=== PATIENT | male | born 1965 ===

== ENCOUNTER 2025-09-17 20:00 | Inpatient (IN) | payer MEDICARE, OTHER, SELFPAY ==
[2025-09-17 20:05] VITALS: BP 155/68
[2025-09-17 20:08] VITALS: BMI 31.1
[2025-09-17 20:10] VITALS: BP 141/69
[2025-09-17 21:53] LABS: Hematocrit 40.8 % (39.0-52.0); Hemoglobin 13.9 g/dL (13.0-18.0); Mean Corp Hgb Conc. 34.1 g/dL (33.0-37.0); Mean Corpuscular Volume 90.3 fL (80.0-94.0); Nucleated Red Blood Cells % 0 % (-); Platelet Count 194 10^3/uL (130-400); Red Cell Dist. Width 12.7 % (11.5-14.5)
[2025-09-17 22:16] LABS: ALT (SGPT) 24 U/L (0-50); AST (SGOT) 24 U/L (17-59); Albumin 4.1 g/dl (3.5-5.0); Alkaline Phosphatase 64 U/L (38-126); Blood Urea Nitrogen 14 mg/dl (9-20); Calcium 9.2 mg/dl (8.4-10.2); Carbon Dioxide 23 mmol/L (22-30); Chloride 107 mmol/L (98-107); Estimated Creatinine Clearance 84 ml/min; Glucose 116 mg/dl (70-99); Magnesium 1.8 mg/dl (1.6-2.3); Potassium 3.9 mmol/L (3.5-5.1); Sodium 135 mmol/L (135-145); Total Protein 7.3 g/dl (6.3-8.2); eGFR > 60.00
[2025-09-17 22:17] LABS: INR 1.05; PT 14.0 Sec (11.4-14.6)
[2025-09-17 22:18] LABS: APTT 31.6 Sec (23.4-35.0)
[2025-09-17] MEDS: COLACE 100 MG PO (22:33)
[2025-09-17 22:35] VITALS: BP 123/58
[2025-09-17 22:39] LABS: Glucose - Point of Care 191 mg/dl (70-99)
[2025-09-18] VITALS (8 sets, daily range): BP systolic 124–150; BP diastolic 56–79; BMI 31.1
--- NOTE | 2025-09-18 00:36 | PTCARENOTE ---
Rec'd pt as transfer from [facility]. Pt AAO*3, VSS, and SR on tele monitor. Pt denies any pain or discomfort and oriented to room. Pt now resting with call del castillo in reach. See MAR and flowchart for full pt care and assessment. Pt [place]
speaking with hospital job order clerk in room.
[2025-09-18 04:57] LABS: Hematocrit 39.7 % (39.0-52.0); Hemoglobin 13.8 g/dL (13.0-18.0); Mean Corp Hgb Conc. 34.8 g/dL (33.0-37.0); Mean Corpuscular Volume 88.4 fL (80.0-94.0); Platelet Count 196 10^3/uL (130-400); Red Cell Dist. Width 12.7 % (11.5-14.5)
[2025-09-18 05:26] LABS: Blood Urea Nitrogen 13 mg/dl (9-20); Calcium 9.1 mg/dl (8.4-10.2); Carbon Dioxide 24 mmol/L (22-30); Chloride 110 mmol/L (98-107); Estimated Creatinine Clearance 84 ml/min; Glucose 96 mg/dl (70-99); HDL Cholesterol 24 mg/dl; LDL Cholesterol, Calculated 153 mg/dl; Magnesium 1.9 mg/dl (1.6-2.3); Potassium 4.3 mmol/L (3.5-5.1); Sodium 138 mmol/L (135-145); Very Low Density Lipoprotein 40 mg/dl (0-30); eGFR > 60.00
[2025-09-18 08:06] LABS: Glucose - Point of Care 106 mg/dl (70-99)
--- NOTE | 2025-09-18 08:32 | HPS.HSE ---
Addendum entered and electronically signed by Giorgio Cox MD 09/18/25 09:55:
I saw and examined the patient.
The PA's note was reviewed and I agree with the note.
Comment:
DARREN 2254: PREOP
60M s/ TVD on elective cath, known PVD w/ LE claudication
LAST PLAVIX was 09/17, LAST FARXIGA was 09/17
-��������� Check carotid U/S
-��������� Check palmar arch studies (known PVD, current smoker)
-��������� Consult vascular surgery for claudication/known 90% B/L SFA disease, etc.
-��������� Check CT-C w/o contrast - DONE
-��������� Check FULL PFTs
-��������� Check echocardiogram
-��������� OR timing TBD
Original Note:
Family Physician
-
Family Physician: NO INTERVIEW UNKNOWN
Chief Complaint
-
Transfer for CABG evaluation due to triple-vessel disease found on left heart catheterization
History of Present Illness
Immanuel Mayorga is a 60-year-old Belgian speaking [id number] male followed by Dr. Leslie and transferred to [facility] for CABG evaluation after finding triple-vessel coronary disease left heart cath. Patient initially presented to [facility] on 09/17/2025 for elective heart catheterization due to high risk for coronary disease due to uncontrolled type 2 diabetes, continued tobacco abuse, and complaint of lower extremity claudication. Patient underwent a gated Myoview stress
test in January 2025 which was negative for scar or ischemia and reported an EF of 73%. Left heart cath performed by Dr. Mcleod reported triple-vessel coronary disease. Patient currently denies chest discomfort, shortness of breath, lower extremity
edema. Last dose of Plavix was 09/17/2025. Last dose of Farxiga was 09/17/2025.
Pertinent negatives: Denies CVA/TIA, asthma, dysphagia, reflux, hepatitis, kidney stones, kidney disease, cancer, PE/DVT, prior chest surgery/radiation
Medical History
Past Medical History
Past Medical History: Reports COPD (Current tobacco (40+ pack year history)), HTN, Hypercholesterolemia, NIDDM (x 20 years) and Other (PAD with B/L SFA 90% stenosis, B/L anterior tibial occlusion, BPH)
Past Surgical History: Reports None
Social History
Tobacco: Smoker (Current 40+ pack-year history)
Alcohol: Occasional
Drug: None
Employment: Not Employed
Family History
Family History: Not pertinent
Allergies / Home Medications
Allergies reflects when Allergies were last updated in [facility].
Allergies
Allergy/AdvReac Type Severity Reaction Status Date / Time
No Known Allergies Allergy Unverified 09/17/25 15:37
Home Medications
�Medication �Instructions �Recorded
aspirin 81 mg QDAY 09/18/25
carvedilol 25 mg tablet 25 mg PO BID 09/18/25
chlorhexidine gluconate 0.12 % 15 ml QDAY 09/18/25
mouthwash
cilostazol 100 mg tablet 100 mg PO BID 09/18/25
dapagliflozin propanediol 5 mg 5 mg PO DAILY 09/18/25
tablet (Farxiga)
diclofenac sodium 1 % topical gel 4 g topical QID PRN other 09/18/25
fenofibrate 150 mg capsule 150 mg PO DAILY 09/18/25
gabapentin 300 mg capsule 300 mg QDAY 09/18/25
icosapent ethyl 1 gram capsule 2 g PO BID 09/18/25
(Vascepa)
levofloxacin 500 mg tablet 500 mg PO DAILY 09/18/25
metformin 1,000 mg tablet 1,000 mg BID 09/18/25
mupirocin 2 % topical ointment 1 applic topical BID 09/18/25
tadalafil 20 mg tablet 20 mg PO DAILY PRN other 09/18/25
Home Medications with original date entered in [facility]
Allergy/Medication List:
Home Medications
�Medication �Instructions �Recorded
aspirin 81 mg QDAY 09/18/25
carvedilol 25 mg tablet 25 mg PO BID 09/18/25
chlorhexidine gluconate 0.12 % 15 ml QDAY 09/18/25
mouthwash
cilostazol 100 mg tablet 100 mg PO BID 09/18/25
dapagliflozin propanediol 5 mg 5 mg PO DAILY 09/18/25
tablet (Farxiga)
diclofenac sodium 1 % topical gel 4 g topical QID PRN other 09/18/25
fenofibrate 150 mg capsule 150 mg PO DAILY 09/18/25
gabapentin 300 mg capsule 300 mg QDAY 09/18/25
icosapent ethyl 1 gram capsule 2 g PO BID 09/18/25
(Vascepa)
levofloxacin 500 mg tablet 500 mg PO DAILY 09/18/25
metformin 1,000 mg tablet 1,000 mg BID 09/18/25
mupirocin 2 % topical ointment 1 applic topical BID 09/18/25
tadalafil 20 mg tablet 20 mg PO DAILY PRN other 09/18/25
Review of Systems
-
History Source: Patient and Family (son as dietary clerk)
Constitutional: Reports No Symptoms
EENT: Reports No Symptoms
Respiratory: Reports No Symptoms
Cardiac: Reports No Symptoms
Abdomen/GI: Reports No Symptoms
: Reports No Symptoms
Musculoskeletal: Reports Other (LE claudication )
Skin: Reports No Symptoms
Neurological: Reports No Symptoms
Endocrine: Reports See HPI
Hematologic/Lymphatic: Reports No Symptoms
Psych: Reports No Symptoms
Physical Exam
Vital Signs
Vital Signs
Temp Pulse Resp BP Pulse Ox
99.1 F 73 18 150/69 96
09/18/25 07:54 09/18/25 08:00 09/18/25 07:54 09/18/25 07:56 09/18/25 07:56
Physical Exam
General: Well Developed, Well Nourished and No Apparent Distress
HEENT: NormoCephalic, Anicteric, Moist mucous membranes, PERRLA, [place] Conjunctivae, No Ptosis, Nose Appears Normal, Ears Appear Normal and Neck Nontender
Respiratory: Clear
Cardiac: S1/S2 and Regular Rhythm
Breast: N/A
GI: Soft, Non Tender, Non Distended, Normal Bowel Sounds and No Hepatosplenomegaly
Rectal: Deferred by Provider
Genito-urinary: Deferred by me
Musculoskeletal: No Clubbing, No Cyanosis and No Edema
Skin: Warm and Dry
Neuro: AO x 3, No Motor Deficits, Nonfocal/grossly intact and No Sensory Deficits
Hematologic/Lymphatic: No Lymphadenopathy
Psych: Calm
Laboratory Results
-
09/18/25 04:40
09/18/25 04:40
Laboratory Results
PT 14.0 Sec (11.4-14.6) 09/17/25 21:40
INR 1.05 09/17/25 21:40
APTT 31.6 Sec (23.4-35.0) 09/17/25 21:40
Total Bilirubin 0.5 mg/dl (0.2-1.3) 09/17/25 21:40
AST 24 U/L (17-59) 09/17/25 21:40
ALT 24 U/L (0-50) 09/17/25 21:40
Alkaline Phosphatase 64 U/L (38-126) 09/17/25 21:40
Data Reviewed
-
Diagnostic Radiology: Report Reviewed by me and Discussed with Physician
Medical Tests (Nuc Med, Echo, EKG etc): Report Reviewed by me and Discussed with Physician
Lab Data: Labs Reviewed by me and Discussed with Physician
Old Records: Reviewed (from [facility])
Impression/Plan
-
IMPRESSION: 60-year-old male transferred from [facility] to [facility] for CABG evaluation due to finding of triple-vessel disease on elective left heart cath
PLAN:
Last dose of Farxiga 09/17/2025
Last dose of Plavix 09/17/2025-requires washout period of 5 days prior to surgery
Metformin on hold x 48 hours status post left heart catheterization on 09/17/2025
Surgeon to review imaging and discuss risk/benefit with patient and family
Preop diagnostic testing ordered including radial artery ultrasound to evaluate conduit
Patient has concern about receiving heparin due to pork based nature of medicine
Diabetes nurse practitioner will need to follow for aggressive management of diabetes
Need for immediate lifelong backup cessation
[2025-09-18 09:39] LABS: Glycohemoglobin (HgbA1c) 5.9 % (4.0-5.9)
[2025-09-18] MEDS: LEXAPRO 10 MG PO (09:40)
[2025-09-18] MEDS: TRICOR 145 MG PO (09:40)
[2025-09-18] MEDS: SENOKOT 8.6 MG PO ×2 (09:40→21:01)
[2025-09-18] MEDS: ACTOS 30 MG PO (09:40)
[2025-09-18] MEDS: ZETIA 10 MG PO (09:41)
[2025-09-18] MEDS: COREG 3.125 MG PO ×2 (09:41→21:01)
[2025-09-18] MEDS: ASPIR LOW (ENTERIC COATED) 81 MG PO (09:41)
[2025-09-18] MEDS: PROTONIX 40 MG PO (09:41)
[2025-09-18 13:51] LABS: Glucose - Point of Care 90 mg/dl (70-99)
[2025-09-18] MEDS: NICODERM TRANSDERMAL 21 MG TRANSDERM (14:15)
--- NOTE | 2025-09-18 17:16 | PTCARENOTE ---
Pt ambulating in room and halls, denies pain, denies SOB. Nicoderm patch given as ordered.
[2025-09-18 17:54] LABS: Glucose - Point of Care 92 mg/dl (70-99)
[2025-09-18] MEDS: LIPITOR 40 MG PO (17:54)
[2025-09-18 20:42] LABS: Glucose - Point of Care 155 mg/dl (70-99)
[2025-09-18 21:19] LABS: Urine Character Clear (Clear)
[2025-09-18] MEDS: REMOVE NICOTINE PATCH REMOVE (21:25)
[2025-09-18 21:26] LABS: Urine Red Blood Cell 0-2 /HPF (0-2); Urine Squamous Cell 0-2 /LPF (Few); Urine White Cell 0-2 /HPF (0-5)
--- NOTE | 2025-09-18 22:01 | PTCARENOTE ---
Rec'd pt at change of shift. Pt AAO*3, VSS, and SR on tele monitor. Pt denies any pain or discomfort at this time. Pt and family updated on plan of care regarding plavix w/o, CV surgery, and vascular consult. Pt now resting with call del castillo in
reach. Son at bedside. Plan of care ongoing. See MAR and flowchart for full pt care and assessment.
[2025-09-19] VITALS (7 sets, daily range): BP systolic 132–167; BP diastolic 72–85; BMI 31.0
--- NOTE | 2025-09-19 03:30 | W.PN.CT ---
Today's Communication / Plan
-
Plan:
-No issues overnight. No CP/SOB
-Not on heparin or NTG
-Cont. current meds (ASA, Coreg, Zetia, Lipitor, Tricor, Actos, Metformin)
-Holding ADRIANO-I, ARBs, SGLT2 inhibitors in preparation for CABG
-Plavix washout, last dose 09/17/25
-For CABG following Plavix washout
Assessment / Plan
-
Assessment:
-Severe 3v CAD
-Plavix washout, last dose 09/17/25
-HTN
-HLD
-T2DM x 20 yrs (A1C 5.9) x
-Class 1 obesity (BMI 31)
-COPD
-Current tobacco abuse (40 pk/yr)
-PAD with B/L SFA 90% stenosis, B/L anterior tibial occlusion
-Past Medical History: Reports COPD (Current tobacco (40+ pack year history)), HTN, Hypercholesterolemia, NIDDM (x 20 years) and Other (PAD with , BPH)
Discussed patient care with: Cardiology, Nursing, Respiratory Therapy, Pharmacy and Care Team
Subjective
-
Date of Service: September 19, 2025
Pt c/o LE claudication, denies CP/SOB
Objective Data
-
Lab Results
09/18/25 04:40
PT 14.0 Sec (11.4-14.6) 09/17/25 21:40
INR 1.05 09/17/25 21:40
APTT 31.6 Sec (23.4-35.0) 09/17/25 21:40
Vital Signs
Vital Signs
Temp Pulse Resp BP Pulse Ox
97.9 F 81 16 132/56 98
09/18/25 22:23 09/18/25 22:23 09/18/25 22:23 09/18/25 22:23 09/18/25 22:23
CT Intake/Output/Weight
09/18/25 09/18/25 09/19/25
06:59 18:59 06:59
Intake Total 480 / 480 480 / 480
Output Total 400 / 400
Balance 480 / 480 -400 / 80 480 / 80
SaO2: 98 (RA)
Physical Exam
-
General: Awake, Oriented and AOx3
Cardiovascular: Regular rate & rhythm, No Murmurs, No Rub and No Gallop
Respiratory: Clear
Extremities: Other (+LE pulses by doppler )
Data Reviewed
-
Lab Results: Results Reviewed
Medications: Active Meds Reviewed
Chest X-Ray: Report Reviewed and Image Reviewed
ECG: Report Reviewed and Image Reviewed
[2025-09-19 05:11] LABS: Blood Urea Nitrogen 15 mg/dl (9-20); Calcium 9.2 mg/dl (8.4-10.2); Carbon Dioxide 22 mmol/L (22-30); Chloride 112 mmol/L (98-107); Estimated Creatinine Clearance 84 ml/min; Glucose 119 mg/dl (70-99); Magnesium 2.0 mg/dl (1.6-2.3); Potassium 4.4 mmol/L (3.5-5.1); Sodium 139 mmol/L (135-145); eGFR > 60.00
[2025-09-19 08:51] LABS: Glucose - Point of Care 135 mg/dl (70-99)
[2025-09-19] MEDS: NICODERM TRANSDERMAL 21 MG TRANSDERM (09:25)
[2025-09-19] MEDS: COREG 3.125 MG PO ×2 (09:27→19:30)
[2025-09-19] MEDS: ACTOS 30 MG PO (09:27)
[2025-09-19] MEDS: ZETIA 10 MG PO (09:28)
[2025-09-19] MEDS: GLUCOPHAGE 1000 MG PO ×2 (09:28→17:38)
[2025-09-19] MEDS: ASPIR LOW (ENTERIC COATED) 81 MG PO (09:28)
[2025-09-19] MEDS: PROTONIX 40 MG PO (09:28)
[2025-09-19] MEDS: SENOKOT 8.6 MG PO ×2 (09:29→19:31)
[2025-09-19] MEDS: LEXAPRO 10 MG PO (09:29)
[2025-09-19] MEDS: TRICOR 145 MG PO (09:29)
--- NOTE | 2025-09-19 12:08 | CON.CAR ---
Consultation
Consultation Request
Date/Time Consultation Requested: 09/18/2025
Date/Time Consultation Performed: 09/19/2025
Reason for Consultation: Coronary disease
Medical History
-
Chief Complaint: Coronary artery disease
History of Present Illness:
68-year-old gentleman, Burkinan-speaking, with patient's son present in the room during most of the translation, patient Dr. Leslie from [facility], is transferred to [facility] for coronary bypass grafting.
Patient presented to the [facility] with severe lower extremity swelling and claudication symptoms. Patient underwent workup for elective cardiac catheterization on 09/17/2025 prior to PVD intervention. Patient was noted to have
uncontrolled diabetes, continued tobacco abuse and severe peripheral vascular disease - Peripheral artery disease with bilateral SFA 90% stenosis. Bilateral anterior tibial artery occlusion.
Patient had myocardial perfusion stress test back in January 2025 that was negative for any inducible ischemia and LVEF was 73%. Cardiac catheterization done on 09/17/[address] Mcleod at [facility] showed severe triple-vessel disease.
Patient is on Farxiga and Plavix. Patient's last dose of Plavix and Farxiga was on 09/17/2025. Patient is admitted and Plavix washout is planned with plan of cardiac bypass surgery later this week.
Past Medical History
Past Medical History: CAD, COPD, Hypercholesterolemia, NIDDM and Other (Peripheral artery disease with bilateral SFA 90% stenosis. Bilateral anterior tibial artery occlusion, continued tobacco abuse with 40+ pack-year smoking history)
Social History
Tobacco: Smoker
Alcohol: Occasional
Family History
Family History: Reviewed & Not Pertinent
Allergies / Home Medications
Allergy/AdvReac Type Severity Reaction Status Date / Time
No Known Allergies Allergy Unverified 09/17/25 15:37
�Medication �Instructions �Recorded �Confirmed �Type
aspirin 81 mg QDAY 09/18/25 09/18/25 History
carvedilol 25 mg tablet 25 mg PO BID 09/18/25 09/18/25 History
chlorhexidine gluconate 0.12 % 15 ml QDAY 09/18/25 09/18/25 History
mouthwash
cilostazol 100 mg tablet 100 mg PO BID 09/18/25 09/18/25 History
dapagliflozin propanediol 5 mg 5 mg PO DAILY 09/18/25 09/18/25 History
tablet (Farxiga)
diclofenac sodium 1 % topical gel 4 g topical QID PRN other 09/18/25 09/18/25 History
fenofibrate 150 mg capsule 150 mg PO DAILY 09/18/25 09/18/25 History
gabapentin 300 mg capsule 300 mg QDAY 09/18/25 09/18/25 History
icosapent ethyl 1 gram capsule 2 g PO BID 09/18/25 09/18/25 History
(Vascepa)
levofloxacin 500 mg tablet 500 mg PO DAILY 09/18/25 09/18/25 History
metformin 1,000 mg tablet 1,000 mg BID 09/18/25 09/18/25 History
mupirocin 2 % topical ointment 1 applic topical BID 09/18/25 09/18/25 History
tadalafil 20 mg tablet 20 mg PO DAILY PRN other 09/18/25 09/18/25 History
Review of Systems
-
All other systems: Negative unless noted
Physical Exam
Vital Signs
Temp Pulse Resp BP Pulse Ox
98 F 74 20 132/73 99
09/19/25 11:09 09/19/25 11:06 09/19/25 11:09 09/19/25 11:06 09/19/25 11:09
Lab Results
09/18/25 04:40
09/19/25 04:19
Keg-G-Ovxwxlzsxre Pept 84.8 pg/ml 09/17/25 21:40
Physical Exam
General: Well Developed, Well Nourished and No Apparent Distress
HEENT: Normocephalic, Anicteric and Moist Mucous Membranes
Respiratory: Clear and Non Labored Respirations; Negative Wheezes or Crackles
Cardiac: S1/S2 and Regular Rhythm
GI: Soft, Non Tender and Non Distended
Musculoskeletal: No Clubbing, No Cyanosis and No Edema
Skin: Warm and Dry
Neuro: Awake, Alert and Oriented
Psych: Calm
Impression / Plan
-
60-year-old Burkinan-speaking gentleman with history of HTN, diabetes, hyperlipidemia, 40+ smoking abuse, severe peripheral artery disease and triple-vessel coronary artery disease is recommended to undergo bypass surgery.
Coronary artery disease
- On aspirin, Coreg, Lipitor, fenofibrate, and Zetia
- Patient was on aspirin/Plavix for PAD. Last dose of Plavix was on 09/17/2025
- Last echo 12/14/2024: LVEF 60%. No significant valvular heart disease.
- Cardiac catheterization 09/17/2025: Triple-vessel disease. I personally do not have left heart cath angiography films.
- CT surgery to review the angiography and plan for bypass.
- At this time we will continue patient on aspirin, carvedilol and statins.
- Plavix washout and plan for bypass on Saturday or .
Smoking
- Smoking cessation.
- Nicotine patch
Diabetes
- currently on Actos, Farxiga and metformin
- Sliding scale insulin for better diabetes/glucose control perioperatively.
- A1c is 5.9.
Hyperlipidemia
- Poorly controlled hyperlipidemia with total cholesterol 217 and LDL 153.
- Currently on Lipitor, fenofibrate and Zetia
- If he is compliant with the current regimen, he may be a candidate for PCSK9 inhibitors.
Data Reviewed
-
EKG: Tracing Personally Visualized and interpreted and Report Reviewed by me
Radiology: Report Reviewed by me
Labs: Labs Reviewed by me, Discussed with Physician, Discussed with Patient and Discussed with Family
Old Records: Reviewed
[2025-09-19 12:13] LABS: Glucose - Point of Care 100 mg/dl (70-99)
[2025-09-19 16:52] LABS: Glucose - Point of Care 201 mg/dl (70-99)
[2025-09-19] MEDS: LIPITOR 40 MG PO (17:38)
--- NOTE | 2025-09-19 18:04 | W.PN.CT ---
Today's Communication / Plan
-
- await CUS, B/L LE US, palmar arch US, TTE on 09/20
- Full department PFTs ordered for 09/21
Assessment / Plan
-
Assessment:
-Severe 3v CAD
-Plavix washout, last dose 09/17/25
-HTN
-HLD
-T2DM x 20 yrs (A1C 5.9) x
-Class 1 obesity (BMI 31)
-COPD
-Current tobacco abuse (40 pk/yr)
-PAD with B/L SFA 90% stenosis, B/L anterior tibial occlusion
-Past Medical History: Reports COPD (Current tobacco (40+ pack year history)), HTN, Hypercholesterolemia, NIDDM (x 20 years) and Other (PAD with , BPH)
Discussed patient care with: Cardiology, Nursing and Care Team
Subjective
-
Date of Service: September 19, 2025
Objective Data
-
Lab Results
09/18/25 04:40
09/19/25 04:19
PT 14.0 Sec (11.4-14.6) 09/17/25 21:40
INR 1.05 09/17/25 21:40
APTT 31.6 Sec (23.4-35.0) 09/17/25 21:40
Vital Signs
Vital Signs
Temp Pulse Resp BP Pulse Ox
98.5 F 78 20 155/74 97
09/19/25 16:03 09/19/25 16:01 09/19/25 16:03 09/19/25 16:01 09/19/25 16:03
CT Intake/Output/Weight
09/18/25 09/19/25 09/19/25
18:59 06:59 18:59
Intake Total 480 / 480
Output Total 400 / 400
Balance -400 / 80 480 / 80
SaO2: 97
Physical Exam
-
General: AOx3
Cardiovascular: Regular rate & rhythm
Respiratory: Clear
Extremities: No Edema
Data Reviewed
-
Lab Results: Results Reviewed
Chest X-Ray: Report Reviewed and Image Reviewed
ECG: Report Reviewed and Image Reviewed
--- NOTE | 2025-09-19 18:28 | PTCARENOTE ---
Pt ambulated in halls, carlitos well. Accucheck this evening 201, Pt refused insulin, he did take his PO Metformin as ordered.
[2025-09-19] MEDS: FLUSH (NSS) 1 FLUSH IV (19:30)
--- NOTE | 2025-09-19 21:55 | PTCARENOTE ---
Rec'd pt at change of shift. Pt AAO*3, VSS, and Sr on tele monitor. Pt denies any pain or discomfort and new zealander speaking with hospital coat tailor at bedside. Pt now resting with call del castillo in reach. See MAR and flowchart for full pt care and
assessment.
[2025-09-19 22:46] LABS: Glucose - Point of Care 107 mg/dl (70-99)
[2025-09-20] VITALS (7 sets, daily range): BP systolic 131–159; BP diastolic 61–87; BMI 31.1
--- NOTE | 2025-09-20 04:14 | W.PN.CT ---
Today's Communication / Plan
-
Plan:
-No issues overnight. No CP/SOB
-Not on heparin or NTG
-Cont. current meds (ASA, Coreg, Zetia, Lipitor, Tricor, Actos, Metformin)
-Holding ADRIANO-I, ARBs, SGLT2 inhibitors in preparation for CABG
-Plavix washout, last dose 09/17/25
-Ongoing preop workup (CUS, B/L LE US, palmar arch US, TTE on 09/20, full department PFTs ordered for 09/21)
-For CABG following Plavix washout possibly Saturday 09/22, by Dr. Cox
Assessment / Plan
-
Assessment:
-Severe 3v CAD
-Plavix washout, last dose 09/17/25
-HTN
-HLD
-T2DM x 20 yrs (A1C 5.9)
-Class 1 obesity (BMI 31)
-COPD
-Current tobacco abuse (40 pk/yr)
-PAD with B/L SFA 90% stenosis, B/L anterior tibial occlusion
Discussed patient care with: Cardiology, Nursing, Respiratory Therapy, Pharmacy and Care Team
Subjective
-
Date of Service: September 20, 2025
Pt c/o LE claudication, denies CP/SOB
Objective Data
-
Lab Results
09/19/25 04:19
PT 14.0 Sec (11.4-14.6) 09/17/25 21:40
INR 1.05 09/17/25 21:40
APTT 31.6 Sec (23.4-35.0) 09/17/25 21:40
Vital Signs
Vital Signs
Temp Pulse Resp BP Pulse Ox
98 F 69 16 153/72 98
09/19/25 22:22 09/19/25 23:00 09/19/25 22:22 09/19/25 22:22 09/19/25 22:22
CT Intake/Output/Weight
09/19/25 09/19/25 09/20/25
06:59 18:59 06:59
Intake Total 480 / 480 480 / 480
Balance 480 / 80 480 / 480
SaO2: 98 (RA)
Physical Exam
-
General: Awake, Oriented and AOx3
Cardiovascular: Regular rate & rhythm and No Murmurs
Respiratory: Clear
Extremities: Other (Dopplerable LE pulses)
Data Reviewed
-
Lab Results: Results Reviewed
Medications: Active Meds Reviewed
Chest X-Ray: Report Reviewed and Image Reviewed
ECG: Report Reviewed and Image Reviewed
[2025-09-20 05:14] LABS: Hematocrit 41.4 % (39.0-52.0); Hemoglobin 14.5 g/dL (13.0-18.0); Mean Corp Hgb Conc. 35.0 g/dL (33.0-37.0); Mean Corpuscular Volume 89.8 fL (80.0-94.0); Platelet Count 192 10^3/uL (130-400); Red Cell Dist. Width 12.3 % (11.5-14.5)
--- NOTE | 2025-09-20 08:20 | CON.VAS ---
Consultation
Consultation Request
Date/Time Consultation Performed: 09/20/2025 1300
Requesting Provider: Cardiothoracic surgery
Performing Provider: Rima Spencer NP-C for Anson Black M.D.
Reason for Consultation: Peripheral arterial disease, preoperative evaluation
Medical History
-
Chief Complaint: Transfer for CABG following elective cardiac catheterization
History of Present Illness:
This is a 60-year-old male patient who was transferred to [facility] for CABG following elective heart catheterization done at [facility] on 09/17/2025, which found high risk coronary artery disease requiring urgent triple-vessel CABG. He
is now undergoing preoperative evaluations and Plavix washout for tentatively scheduled CABG with cardiothoracic surgery. He is Samoan speaking only and this consult was done utilizing video hourly sign language interpreter via [employer] hourly sign language interpreter Erika #[id number]
per hospital policy. Unfortunately, transfer paperwork only has results of cardiac catheterization, there is a reference to BL angiogram in results of cardiac cath but they were not included in transfer paperwork. There also is mention of a possible
CT angio but again no results are present om transfer paperwork. We inquired to patient if he underwent a CT angio at [facility] and he cannot recall. Patient indicates that he was experiencing claudication style pain in BL calves with
ambulation, but today he overall feels good and has been pain free (even with ambulation of room and halls). He is an active tobacco smoker (40+ pack year), history of hypertension/hypercholesterolemia/diabetes as well. No prior lower extremity
revascularizations. He does endorse seeing a vascular surgeon out of [facility] but no surgical intervention was done. States, overall he has no complaints at this time.
Past Medical History
Past Medical History: CAD, COPD, Hypercholesterolemia, NIDDM and Other (Tobacco abuse (40+ pack-year history), peripheral arterial disease)
Past Surgical History: Cardiac (Cardiac catheterization)
Social History
Tobacco: Smoker
Alcohol: Occasional
Drug: None
Allergies / Home Medications
Allergy/AdvReac Type Severity Reaction Status Date / Time
No Known Allergies Allergy Unverified 09/17/25 15:37
�Medication �Instructions �Recorded �Confirmed �Type
aspirin 81 mg QDAY 09/18/25 09/18/25 History
carvedilol 25 mg tablet 25 mg PO BID 09/18/25 09/18/25 History
chlorhexidine gluconate 0.12 % 15 ml QDAY 09/18/25 09/18/25 History
mouthwash
cilostazol 100 mg tablet 100 mg PO BID 09/18/25 09/18/25 History
dapagliflozin propanediol 5 mg 5 mg PO DAILY 09/18/25 09/18/25 History
tablet (Farxiga)
diclofenac sodium 1 % topical gel 4 g topical QID PRN other 09/18/25 09/18/25 History
fenofibrate 150 mg capsule 150 mg PO DAILY 09/18/25 09/18/25 History
gabapentin 300 mg capsule 300 mg QDAY 09/18/25 09/18/25 History
icosapent ethyl 1 gram capsule 2 g PO BID 09/18/25 09/18/25 History
(Vascepa)
levofloxacin 500 mg tablet 500 mg PO DAILY 09/18/25 09/18/25 History
metformin 1,000 mg tablet 1,000 mg BID 09/18/25 09/18/25 History
mupirocin 2 % topical ointment 1 applic topical BID 09/18/25 09/18/25 History
tadalafil 20 mg tablet 20 mg PO DAILY PRN other 09/18/25 09/18/25 History
Review of Systems
-
History Source: Patient
Constitutional: Reports No Symptoms
EENT: Reports No Symptoms
Respiratory: Reports No Symptoms
Cardiac: Reports No Symptoms
Vascular: Reports Leg Pain / Claudication
Abdomen/GI: Reports No Symptoms
: Reports No Symptoms
Musculoskeletal: Denies Edema
Skin: Reports No Symptoms
Neurological: Reports No Symptoms
Endocrine: Reports No Symptoms
Physical Exam
Vital Signs
Temp Pulse Resp BP Pulse Ox
98.2 F 77 18 131/73 98
09/20/25 07:00 09/20/25 07:00 09/20/25 07:00 09/20/25 04:40 09/20/25 07:00
Lab Results
09/20/25 04:47
09/19/25 04:19
Nfe-E-Qxyearseyjy Pept 84.8 pg/ml 09/17/25 21:40
Physical Exam
General: No Apparent Distress
HEENT: Normocephalic, Anicteric and Atraumatic
Respiratory: Non Labored Respirations
Cardiac: Negative JVD
GI: Soft, Non Tender and Non Distended
Musculoskeletal: No Edema
Skin: Warm
Neuro: AO x 3
Pulses: Bilateral Femoral: +1 (Nonpalpable distally)
Assessment / Plan
-
Assessment: 60 year old male with CAD and PAD, preoperative for CABG
Plan:
Unfortunately, no records regarding PAD were included in transfer paperwork. Given upcoming surgery, would obtain noninvasive duplex imaging with MARJORIE/TBI's, to establish baseline and healing potential from harvesting sites. Will request record and
images of CTA aorta runoff and/or cath lower extremity angiography films. No indication for revascularization prior to his CABG. Can follow up in office if wishes to follow with our team, Otherwise if he has another vascular provider he can
follow-up with them.
Screening for abdominal aortic aneurysm. 60-year-old with active tobacco use. Should be screened after the age of 65 with one-time duplex. However if he is completed CT angiogram already we should have that information.
Patient seen and examined at bedside with Dr. Anson Black, above plan reviewed with attending.
[2025-09-20 08:27] LABS: Glucose - Point of Care 213 mg/dl (70-99)
[2025-09-20] MEDS: SENOKOT 8.6 MG PO ×2 (08:27→19:03)
[2025-09-20] MEDS: ASPIR LOW (ENTERIC COATED) 81 MG PO (08:27)
[2025-09-20] MEDS: TRICOR 145 MG PO (08:27)
[2025-09-20] MEDS: COREG 6.25 MG PO ×2 (08:27→19:03)
[2025-09-20] MEDS: GLUCOPHAGE 1000 MG PO ×2 (08:27→16:59)
[2025-09-20] MEDS: PROTONIX 40 MG PO (08:27)
[2025-09-20] MEDS: LEXAPRO 10 MG PO (08:27)
[2025-09-20] MEDS: ACTOS 30 MG PO (08:27)
[2025-09-20] MEDS: ZETIA 10 MG PO (08:28)
[2025-09-20] MEDS: NICODERM TRANSDERMAL 21 MG TRANSDERM ×2 (08:28→22:54)
[2025-09-20] MEDS: REMOVE NICOTINE PATCH 21 PATCH REMOVE (08:31)
--- NOTE | 2025-09-20 10:16 | W.PN.CD ---
Today's Communication / Plan
-
Plavix washout, CABG eval
recommend increasing coreg if BP remains elevated
would transition statin to crestor 40mg before discharge
echo
Impression / Plan
-
60-year-old Lao-speaking gentleman with history of HTN, diabetes, hyperlipidemia, 40+ smoking abuse, severe peripheral artery disease and triple-vessel coronary artery disease is recommended to undergo bypass surgery.
Coronary artery disease: severe
-echo today
- On aspirin, Coreg, Lipitor, fenofibrate, and Zetia
- Patient was on aspirin/Plavix for PAD. Last dose of Plavix was on 09/17/2025
- Last echo 12/14/2024: LVEF 60%. No significant valvular heart disease.
- Cardiac catheterization 09/17/2025: Triple-vessel disease.
- Plavix washout and plan for bypass on Saturday or .
-obesity increases his risk for CT surgery
HTN
-recommend increasing coreg if BP remains elevated
Smoking
- Smoking cessation.
- Nicotine patch
Hyperlipidemia
- Poorly controlled hyperlipidemia with total cholesterol 217 and LDL 153.
- Currently on Lipitor, fenofibrate and Zetia
- would transition statin to crestor 40mg before discharge
Diabetes
- per primary team
Physical Exam
Vital Signs/Labs
Vital Signs
Temp Pulse Resp BP Pulse Ox
98.2 F 91 18 159/87 97
09/20/25 07:00 09/20/25 08:00 09/20/25 07:00 09/20/25 07:00 09/20/25 08:49
09/19/25 09/20/25 09/21/25
06:59 06:59 06:59
Actual Weight 81.9 kg 82.1 kg
09/20/25 04:47
09/19/25 04:19
PT 14.0 Sec (11.4-14.6) 09/17/25 21:40
INR 1.05 09/17/25 21:40
APTT 31.6 Sec (23.4-35.0) 09/17/25 21:40
Magnesium 2.0 mg/dl (1.6-2.3) 09/19/25 04:19
Triglycerides 204 mg/dl (10-149) H 09/18/25 04:40
LDL Cholesterol, Calc 153 mg/dl 09/18/25 04:40
VLDL Cholesterol, Calc 40 mg/dl (0-30) H 09/18/25 04:40
HDL Cholesterol 24 mg/dl 09/18/25 04:40
09/17/25
21:40
Nlk-Y-Qqwgncwgvta Pept 84.8
Physical Exam
Constitutional: No acute distress and Comfortable
EENT: Moist mucous membranes
Cardiovascular: Rhythm & rate is regular, Pedal edema is absent, JVD pressure is normal and Systolic murmur absent
Respiratory: Lungs clear to auscul.
Data Reviewed
-
Date of Service: September 20, 2025
EKG: Other (Tele: SR 70s)
Labs: Labs Reviewed by me
--- NOTE | 2025-09-20 10:17 | CARDSERVLU ---
Echocardiogram with Lumason completed after protocol screening completed. Allergies verified.
Patent IV site: _R AC____
IV site flushed with 0.9% NaCl pre and post administration.
Diluted bolus method utilized to enhance visualization of ventricular moser.
Total volume given: _5___ mL
Patient tolerated all procedures well without complications.
--- NOTE | 2025-09-20 10:20 | CARDSERVLU ---
Echocardiogram with Lumason completed after protocol screening completed. Allergies verified.
Patent IV site:
IV site flushed with 0.9% NaCl pre and post administration.
Diluted bolus method utilized to enhance visualization of ventricular moser.
Total volume given: ____ mL
Patient tolerated all procedures well without complications.
LUMASON NOTE WAS WRITTEN IN ERROR ON THIS PATIENT. NO LUMASON WAS GIVEN
--- NOTE | 2025-09-20 10:50 | PTCARENOTE ---
Assumed care of the pt @ 0700. Pt is AAOx3 SR on the monitor VSS this morning accu check 213 refused insulin coverage. Pt was off the floor and back to US. Call del castillo within reach POC discussed with pt.
[2025-09-20 12:23] LABS: Glucose - Point of Care 116 mg/dl (70-99)
--- NOTE | 2025-09-20 13:42 | W.PN.UPDATE ---
Update Note
Progress Note Update
Seen and evaluated/examined with LUIS F Spencer ([employer]iberian photoengraving printer utilized, see LUIS F Spencer's note regarding photoengraving printer information). 60-year-old male who was referred here for CABG. Awaiting Plavix washout currently. Notes history of peripheral
arterial disease/claudication. From report he underwent a coronary catheterization at which time they did look at his lower extremity arteries. I am a little bit unclear but it sounds like he may have had a CT angiogram (1 note indicates that),
but when I asked the patient he does remember any CT scan. Patient today notes that he is not having any pain in his leg. He notes that he walked around quite a bit today around the halls and had no issues. However at home he generally has
bilateral calf claudication from what he describes. He is an active tobacco smoker (40+ pack year), history of hypertension/hypercholesterolemia/diabetes as well. No prior lower extremity revascularizations. On exam/he is awake and alert. Head
is normocephalic and atraumatic. Eyes are anicteric. Neck is soft no jugular venous distention. Breathing is unlabored. Abdomen is soft, nondistended, nontender. Lower extremity with 1+ femoral pulses palpable bilaterally (weak but palpable
bilaterally). Nonpalpable distally. Feet are both pink and warm. No rubor, no ulcerations.
Plan/
1. PAD - I do not have any records for review. Sounds like he has some history of claudication, but he is describing no history of rest pain, no tissue loss. And he notes today that his claudication seems better and nonbothersome. Regardless
given upcoming surgery, would obtain noninvasive duplex imaging with MARJORIE/TBI's so we know his wound healing potential from vein harvest. If we can get images of his CTA aorta runoff and/or cath lower extremity angiography films this would be
helpful. No indication for revascularization prior to his CABG. If he wishes to follow with me in the office, could continue to follow. Otherwise if he has another vascular provider he can follow-up with them.
2. Screening for abdominal aortic aneurysm. 60-year-old with active tobacco use. Should be screened after the age of 65 with one-time duplex. However if he is completed CT angiogram already we should have that information.
--- NOTE | 2025-09-20 14:19 | CM ---
Chart reviewed. 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 Gave patient an advance directive. Reviewed preoperative and postoperative
instructions and restrictions, along with showering guidelines. Gave patient a Cardiac Surgery Book. Patient is agreeable to a home visit by CT Transitional RN. Plan is for the patient to return home with CT Transitional RN.
[2025-09-20] MEDS: LIPITOR 40 MG PO (16:59)
[2025-09-20 17:03] LABS: Glucose - Point of Care 107 mg/dl (70-99)
[2025-09-20] MEDS: REMOVE NICOTINE PATCH 1 PATCH REMOVE (22:36)
[2025-09-20 22:40] LABS: Glucose - Point of Care 113 mg/dl (70-99)
[2025-09-21] VITALS (9 sets, daily range): BP systolic 123–161; BP diastolic 66–95; BMI 31.1
--- NOTE | 2025-09-21 04:31 | PTCARENOTE ---
Rec'd pt at change of shift. Pt AAO*3, VSS, and SR on tele monitor. Pt Sudanese speaking with hospital human resources trainer at bedside and able to answer yes or no questions. Pt denies any pain or discomfort at this time. Pt updated on plan of care and now
resting with call del castillo in reach. See MAR and flowchart for full pt care and assessment.
2200~ Nicotine patch taken off L arm as ordered. Pt requested new nicotine patch, José Miguel Anderson made aware. Rec'd order for new nicotine patch and given as ordered. See MAR for admin details.
--- NOTE | 2025-09-21 04:45 | W.PN.CT ---
Today's Communication / Plan
-
Plan:
-No issues overnight. No CP/SOB
-Not on heparin or NTG
-Cont. current meds (ASA, Coreg, Zetia, Lipitor, Tricor, Actos, Metformin)
-Holding ADRIANO-I, ARBs, SGLT2 inhibitors in preparation for CABG
-Plavix washout, last dose 09/17/25
-Ongoing preop workup (CUS, B/L LE US, palmar arch US, TTE on 09/20, full department PFTs ordered for 09/21)
-For CABG following Plavix washout tomorrow 09/22, by Dr. Cox
Assessment / Plan
-
Assessment:
-Severe 3v CAD
-Plavix washout, last dose 09/17/25
-HTN
-HLD
-T2DM x 20 yrs (A1C 5.9)
-Class 1 obesity (BMI 31)
-COPD
-Current tobacco abuse (40 pk/yr)
-PAD with B/L SFA 90% stenosis, B/L anterior tibial occlusion
-Carotid artery stenosis, >70% JOHN
Discussed patient care with: Cardiology, Nursing, Respiratory Therapy, Pharmacy and Care Team
Subjective
-
Date of Service: September 21, 2025
No issues overnight. Denies CP/SOB
Objective Data
-
Lab Results
09/20/25 04:47
09/19/25 04:19
PT 14.0 Sec (11.4-14.6) 09/17/25 21:40
INR 1.05 09/17/25 21:40
APTT 31.6 Sec (23.4-35.0) 09/17/25 21:40
Vital Signs
Vital Signs
Temp Pulse Resp BP Pulse Ox
98.6 F 72 16 159/95 98
09/21/25 03:23 09/21/25 04:00 09/21/25 03:23 09/21/25 03:25 09/21/25 03:23
CT Intake/Output/Weight
09/20/25 09/20/25 09/21/25
06:59 18:59 06:59
Intake Total 480 / 480 480 / 480
Balance 480 / 480 480 / 480
SaO2: 98 (RA)
Physical Exam
-
General: Awake, Oriented and AOx3
Cardiovascular: Regular rate & rhythm and No Murmurs
Respiratory: Clear
Extremities: Other (+trace edema, Dopplerable LE pulses)
Data Reviewed
-
Lab Results: Results Reviewed
Medications: Active Meds Reviewed
Chest X-Ray: Report Reviewed and Image Reviewed
ECG: Report Reviewed and Image Reviewed
[2025-09-21 08:46] LABS: Glucose - Point of Care 143 mg/dl (70-99)
[2025-09-21] MEDS: ASPIR LOW (ENTERIC COATED) 81 MG PO (09:57)
[2025-09-21] MEDS: COREG 6.25 MG PO ×2 (09:57→20:54)
[2025-09-21] MEDS: LEXAPRO 10 MG PO (09:58)
[2025-09-21] MEDS: SENOKOT 8.6 MG PO (09:58)
[2025-09-21] MEDS: ZETIA 10 MG PO (09:58)
[2025-09-21] MEDS: TRICOR 145 MG PO (09:58)
[2025-09-21] MEDS: ACTOS 30 MG PO (09:58)
[2025-09-21] MEDS: NICODERM TRANSDERMAL 21 MG TRANSDERM (09:58)
[2025-09-21] MEDS: PROTONIX 40 MG PO (09:59)
[2025-09-21] MEDS: GLUCOPHAGE 1000 MG PO ×2 (09:59→17:51)
--- NOTE | 2025-09-21 10:52 | PTCARENOTE ---
Assumed care of the pt @ 0700. 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 Pt is able to make needs known. SR on the monitor VSS. Pt walks around independently in room and hallway. POC discussed with pt. Call del castillo within reach.
--- NOTE | 2025-09-21 10:56 | CM ---
Chart reviewed. Patient going for a CABG on 09/22/25. Patient is independent of ADLS, lives with his and 3 children, 2 STH, 0 JIM, 0 DME. Plan is for the patient to return home with CT Transitional RN.
--- NOTE | 2025-09-21 11:11 | W.PN.UPDATE ---
Update Note
Progress Note Update
I reviewed noninvasive studies completed yesterday. Right sided MARJORIE 0.73, left side 0.72. Multiphasic common femoral waveforms. Therefore no suggestion of inflow disease. On the right side there is an SFA occlusion. On the left side there is a
severe profundus stenosis, and distal SFA stenosis. Based on this, no indication for any urgent revascularization. He can follow-up with me in the office if he chooses to continue to follow with our vascular group, but alternatively if he has an
established vascular surgeon outside he can see them. As far as recommendations for saphenous vein harvesting, would favor loosely recommending right side over left side given profundus stenosis on the left (in terms of wound healing potential in
the thigh). Communicated to Dr. Cox.
--- NOTE | 2025-09-21 11:34 | W.PN.UPDATE ---
Update Note
Progress Note Update
CARDIAC SURGERY ATTENDING:
I had a long conversation this morning with . Immanuel Mayorga with the aid of [place] spanish interpreter. The patient's son was present via cellular phone during our conversations. I reviewed his pathology, discussed the proposed operative
interventions (coronary artery bypass grafting x 2 with BRIAN to LAD, GSV to OM, GSV to RPDA and concurrent exclusion of his left atrial appendage), reviewed the periprocedural risks (including, but not limited to, , stroke, VA, arrhythmia, PNA,
ISADORA/F, bleeding, infection/wound healing issues), discussed expected in-hospital postprocedural course, and reviewed the expected outpatient recovery. All questions were answered to the best of my abilities. The patient was agreeable to proceed.
He has been tentatively scheduled for surgery tomorrow 09/22/2025.
Thank you for the opportunity participate in the care of this kind gentleman.
Giorgio Cox MD
[phone]
--- NOTE | 2025-09-21 12:09 | W.PN.CD ---
Today's Communication / Plan
-
CABG evaluation, tentative plan for tomorroe
Impression / Plan
-
60-year-old Belarusian-speaking gentleman with history of HTN, diabetes, hyperlipidemia, 40+ smoking abuse, severe peripheral artery disease and triple-vessel coronary artery disease is recommended to undergo bypass surgery.
Coronary artery disease: severe
-echo: EF 65-70%, no sig valve disease
- On aspirin, Coreg, Lipitor, fenofibrate, and Zetia
- Patient was on aspirin/Plavix for PAD. Last dose of Plavix was on 09/17/2025
- Cardiac catheterization 09/17/2025: Triple-vessel disease.
- Plavix washout and plan for bypass this week
-obesity increases his risk for CT surgery
HTN
-recommend increasing coreg if BP remains elevated
Smoking
- Smoking cessation.
- Nicotine patch
Hyperlipidemia
- Poorly controlled hyperlipidemia with total cholesterol 217 and LDL 153.
- Currently on Lipitor, fenofibrate and Zetia
- would transition statin to crestor 40mg before discharge
Diabetes
- per primary team
Physical Exam
Vital Signs/Labs
Vital Signs
Temp Pulse Resp BP Pulse Ox
98.0 F 82 18 143/79 97
09/21/25 11:41 09/21/25 11:41 09/21/25 11:41 09/21/25 08:37 09/21/25 11:41
09/20/25 09/21/25 09/22/25
06:59 06:59 06:59
Actual Weight 82.1 kg 82 kg
09/20/25 04:47
09/19/25 04:19
PT 14.0 Sec (11.4-14.6) 09/17/25 21:40
INR 1.05 09/17/25 21:40
APTT 31.6 Sec (23.4-35.0) 09/17/25 21:40
Magnesium 2.0 mg/dl (1.6-2.3) 09/19/25 04:19
Triglycerides 204 mg/dl (10-149) H 09/18/25 04:40
LDL Cholesterol, Calc 153 mg/dl 09/18/25 04:40
VLDL Cholesterol, Calc 40 mg/dl (0-30) H 09/18/25 04:40
HDL Cholesterol 24 mg/dl 09/18/25 04:40
09/17/25
21:40
Gho-M-Refiefslbcd Pept 84.8
Physical Exam
Constitutional: No acute distress and Comfortable
EENT: Moist mucous membranes
Cardiovascular: Rhythm & rate is regular, Pedal edema is absent, JVD pressure is normal and Systolic murmur absent
Respiratory: Respiratory effort normal and Lungs clear to auscul.
Neuro/Psych: AO x 3
Data Reviewed
-
Date of Service: September 21, 2025
EKG: Other (Tele: SR)
Labs: Labs Reviewed by me
--- NOTE | 2025-09-21 12:30 | W.PN.UPDATE ---
Update Note
Progress Note Update
Procedure Type:�Isolated CABG
Perioperative Outcome Estimate %
Operative Mortality 0.496%
Morbidity & Mortality 4.17%
Stroke 0.891%
Renal Failure 0.686%
Reoperation 1.62%
Prolonged Ventilation 2.29%
Deep Sternal Wound Infection 0.373%
Long Hospital Stay (>14 days) 1.94%
Short Hospital Stay (<6 days)* 64.5%
Clinical Summary
Planned Surgery: Isolated CABG, Urgent, First cardiovascular surgery
Demographics: 60 year old, male, 82kg, 163cm, BMI: 30.9 kg/m�
Lab Values: Creatinine: 0.9 mg/dL, Hematocrit: 41.4%, WBC Count: 7.3 10�/�L, Platelet Count: 700342 cells/�L
PreOp Medications: Oral diabetes control
Substance Abuse: Current smoker, Alcohol use: 2-7 drinks/week
Risk Factors / Comorbidities: Diabetes Mellitus , Hypertension
Pulmonary RF: Mild CLD
Vascular RF: Peripheral Artery Disease
Cardiac Status: NYHA Class II, Ejection Fraction = 66%
Coronary Artery Disease: 3 vessels diseased, Proximal LAD Stenosis >=70%, Stable Angina
[2025-09-21 12:44] LABS: Glucose - Point of Care 136 mg/dl (70-99)
[2025-09-21 17:45] LABS: Glucose - Point of Care 124 mg/dl (70-99)
[2025-09-21] MEDS: LIPITOR 40 MG PO (17:51)
[2025-09-21] MEDS: SENOKOT PO (20:54)
[2025-09-21] MEDS: REMOVE NICOTINE PATCH 1 PATCH REMOVE (20:54)
--- NOTE | 2025-09-21 21:45 | PTCARENOTE ---
Pt received from IVU. Pt admitted to room 2263. Samoan speaking. 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 Pt oriented to room and updated w/ plan for the night. SR on the tele monitor. HR 60-70s. BP stable. Trace b/l LE edema. DP pulses
present via doppler. Pt is 97% on RA. Lung sounds audible/equal b/l. Abdomen round. +BSx4. Voiding w/o issue. Pt educated about NPO status starting at midnight. PIVx1 intact. Pt clipped. G shower #1 complete. Gown/linens changed. See worklist for
full nursing assessment and interventions. Call del castillo within reach.
[2025-09-22] VITALS (23 sets, daily range): BP systolic 70–178; BP diastolic 50–99; PULSE 2; BMI 30.7
--- NOTE | 2025-09-22 00:37 | PTCARENOTE ---
No acute changes in assessment. VSS. Pt resting in bed. NPO starting at midnight. Call del castillo within reach.
--- NOTE | 2025-09-22 05:21 | PTCARENOTE ---
Pt remains SR on the tele monitor. HR 60s. BP stable. POX 98% on RA. Afebrile. CHG bath #2 complete. Weight obtained. Gown/linens changed. Pt and son at the bedside updated w/ plan for the AM. NPO. Per CT HALLIE, no AM labs. Confirmed w/ blood bank, no
ABO needed. Call del castillo within reach.
[2025-09-22] MEDS: PROTONIX 40 MG PO (05:53)
[2025-09-22] MEDS: MAGNESIUM OXIDE 400 MG PO (05:53)
[2025-09-22] MEDS: BACTROBAN 2% OINTMENT 1 APPLIC NASAL ×2 (05:54→20:14)
[2025-09-22] MEDS: LOPRESSOR 25 MG PO (05:57)
[2025-09-22 07:33] LABS: ACT+ - POC 137 Seconds (82-134)
[2025-09-22 08:05] LABS: Urine Character Clear (Clear)
[2025-09-22 08:19] LABS: B.E. - POC -0.5 mmol/L; Glucose - POC 96 mg/dl (70-99); HCO3 - POC 25 mmol/L (21-28); Hematocrit - POC 36 % PCV (42-52); Hemodilution- POC No; Hemoglobin Calculated - POC 12.3; Ionized Calcium - POC 1.21 mmol/L (1.15-1.33); Lactate - POC 0.67 mmol/L (0.36-0.75); O2 Saturation %Calculated-POC 99.8 % (94-98); PCO2 - POC 42 mmHg (35-48); PO2 - POC 254 mmHg (83-108); Potassium - POC 4.1 mmol/L (3.5-5.1); Sodium - POC 138 mmol/L (136-145); Specimen Type - POC Arterial; pH - POC 7.38 (7.35-7.45)
--- NOTE | 2025-09-22 08:22 | CM ---
Reviewed chart. Mr. Mayorga is in the operating room today. Prior to admission he resides with his spouse and three children in a two story home without any steps to enter. Prior to admission he was independent with adls. Will need to see his
functional level post surgery to see if he will have any skilkled care needs. Medical work-up in progress. The discharge kelly is underdetermined at this time.
[2025-09-22 08:23] LABS: Urine Red Blood Cell 0-2 /HPF (0-2); Urine Urothelial Cell 0-2 /LPF (FEW); Urine White Cell 0-2 /HPF (0-5)
[2025-09-22 09:34] LABS: ACT+ - POC 517 Seconds (82-134)
[2025-09-22 10:10] LABS: ACT+ - POC 447 Seconds (82-134)
[2025-09-22 10:29] LABS: B.E. - POC 0.9 mmol/L; Glucose - POC 145 mg/dl (70-99); HCO3 - POC 26 mmol/L (21-28); Hematocrit - POC 26 % PCV (42-52); Hemodilution- POC Yes; Hemoglobin Calculated - POC 9.0; Ionized Calcium - POC 1.07 mmol/L (1.15-1.33); Lactate - POC 0.89 mmol/L (0.36-0.75); O2 Saturation %Calculated-POC 100.0 % (94-98); PCO2 - POC 41 mmHg (35-48); PO2 - POC 419 mmHg (83-108); POC Comment CPB; Potassium - POC 5.4 mmol/L (3.5-5.1); Sodium - POC 138 mmol/L (136-145); Specimen Type - POC Arterial; pH - POC 7.41 (7.35-7.45)
[2025-09-22 10:31] LABS: ACT+ - POC 538 Seconds (82-134)
[2025-09-22 11:03] LABS: ACT+ - POC 540 Seconds (82-134)
[2025-09-22 11:10] LABS: B.E. - POC 2.7 mmol/L; Glucose - POC 176 mg/dl (70-99); HCO3 - POC 27 mmol/L (21-28); Hematocrit - POC 27 % PCV (42-52); Hemodilution- POC Yes; Hemoglobin Calculated - POC 9.2; Ionized Calcium - POC 1.05 mmol/L (1.15-1.33); Lactate - POC 0.67 mmol/L (0.36-0.75); O2 Saturation %Calculated-POC 99.9 % (94-98); PCO2 - POC 38 mmHg (35-48); PO2 - POC 274 mmHg (83-108); POC Comment WARM; Potassium - POC 5.7 mmol/L (3.5-5.1); Sodium - POC 138 mmol/L (136-145); Specimen Type - POC Arterial; pH - POC 7.45 (7.35-7.45)
[2025-09-22 11:38] LABS: ACT+ - POC 383 Seconds (82-134)
[2025-09-22 12:01] LABS: B.E. - POC 0.8 mmol/L; Glucose - POC 132 mg/dl (70-99); HCO3 - POC 26 mmol/L (21-28); Hematocrit - POC 29 % PCV (42-52); Hemodilution- POC Yes; Hemoglobin Calculated - POC 10.0; Ionized Calcium - POC 1.09 mmol/L (1.15-1.33); Lactate - POC 1.71 mmol/L (0.36-0.75); O2 Saturation %Calculated-POC 99.6 % (94-98); PCO2 - POC 42 mmHg (35-48); PO2 - POC 176 mmHg (83-108); POC Comment CPB; Potassium - POC 4.8 mmol/L (3.5-5.1); Sodium - POC 139 mmol/L (136-145); Specimen Type - POC Arterial; pH - POC 7.40 (7.35-7.45)
[2025-09-22 12:03] LABS: ACT+ - POC 137 Seconds (82-134)
--- NOTE | 2025-09-22 12:40 | CON.INTV ---
Consultation
Consultation Request
Date/Time Consultation Requested: 09/22/2025 - 1209
Date/Time Consultation Performed: 09/22/2025 - 1228
Requesting Provider: Vanessa Mojica PA-C
Performing Provider: Dr. Culver
Reason for Consultation: CABG x3
Medical History
-
Chief Complaint: Abnormal C with evaluation for CABG
History of Present Illness:
60-year-old male active tobacco smoker with a past medical history of DM type II, extensive PAD, hypertension, DJD, GERD, left femoral artery stenosis, lower extremity claudication and gait abnormality who presented from [facility] on 09/17/2025 for
evaluation of CABG due to abnormal left heart catheterization showing multivessel CAD. Initially went to [facility] on 09/17/2025 for elective left heart catheterization due to high risk of CAD in the setting of tobacco use, uncontrolled diabetes and lower
extremity claudication with PAD. He underwent a gated Myoview stress test in January 2025 which was negative for scar or ischemia with a reported EF of 73%. Left heart cath performed at [facility] showed triple-vessel CAD. Patient denies chest pain,
shortness of breath or lower extremity edema. Patient was transferred here to for evaluation for CABG. CT surgery was consulted and also vascular surgery consulted given his history of PAD. MARJORIE studies were reviewed and there is SFA occlusion
on the right side with no left-sided severe profundus stenosis and distal SFA stenosis. No indication for urgent revascularization and follow-up in the vascular office was recommended. Full PFT on 09/21/2025 showed class I COPD with no air
trapping or hyperinflation, and preserved gas exchange capacity (DLCO: 93%). CT surgery recommended surgical revascularization which the patient consented to. Today he underwent CABG x 3 with left atrial appendage exclusion. There were no
complications and was transferred postoperatively to the CVICU with security assistant service consulted for additional management/recommendations.
When I saw the patient, he was intubated on SIMV at 16/500/40%/5, with PIP 19 cmH2O, VTe 419 cc and breathing at 16 breaths/min. He has bilateral pleural chest tubes and mediastinal chest tubes x 2. Currently on Precedex at 0.4 mcg/kg/hr, Levophed
at 6 mcg/min and insulin drip at 3 units/hr. Heart rate 75, BP via A-line 107/56, CVP: 13 and he is saturating 99%.
PMHx: Hypertension, DM type II, PAD, COPD, DJD, knee osteoarthritis, GERD, left femoral artery stenosis, lower extremity claudication, gait abnormality
PSHx: Surgery regarding a stomach ulcer in 2006
Past Medical History
Past Medical History: Other (Above as per HPI)
Past Surgical History: Other (Above as per HPI)
Social History
Tobacco: Smoker (43-urdr-zxuk history with 1 PPD x 40 years)
Alcohol: Occasional
Drug: None
Employment: Not Employed
Family History
Family History: Reviewed & Not Pertinent
Allergies / Home Medications
Allergies
Allergy/AdvReac Type Severity Reaction Status Date / Time
No Known Allergies Allergy Unverified 09/17/25 15:37
Home Medications
�Medication �Instructions �Recorded �Confirmed �Last Taken �Type
aspirin 81 mg QDAY Blood Clot Prevention/Tx 09/18/25 09/18/25 Unknown History
carvedilol 25 mg tablet 25 mg PO BID Blood Pressure 09/18/25 09/18/25 Unknown History
chlorhexidine gluconate 0.12 % 15 ml QDAY Oral hygiene 09/18/25 09/18/25 Unknown History
mouthwash
cilostazol 100 mg tablet 100 mg PO BID Blood Clot 09/18/25 09/18/25 Unknown History
Prevention/Tx
dapagliflozin propanediol 5 mg 5 mg PO DAILY Diabetes 09/18/25 09/18/25 Unknown History
tablet (Farxiga)
diclofenac sodium 1 % topical gel 4 g topical QID PRN other 09/18/25 09/18/25 Unknown History
fenofibrate 150 mg capsule 150 mg PO DAILY High Cholesterol 09/18/25 09/18/25 Unknown History
gabapentin 300 mg capsule 300 mg QDAY Pain 09/18/25 09/18/25 Unknown History
icosapent ethyl 1 gram capsule 2 g PO BID High Cholesterol 09/18/25 09/18/25 Unknown History
(Vascepa)
levofloxacin 500 mg tablet 500 mg PO DAILY Infection 09/18/25 09/18/25 Unknown History
metformin 1,000 mg tablet 1,000 mg BID Diabetes 09/18/25 09/18/25 Unknown History
mupirocin 2 % topical ointment 1 applic topical BID Pre-op PPX 09/18/25 09/18/25 Unknown History
tadalafil 20 mg tablet 20 mg PO DAILY PRN other 09/18/25 09/18/25 Unknown History
Review of Systems
-
Unable to Obtain full review of systems at this time due to: Patient Intubation
Vitals / Labs / Diagnostic Testing
Vital Signs
Temp Pulse Resp BP Pulse Ox
98.4 F 67 14 85/55 100
09/22/25 17:57 09/22/25 17:57 09/22/25 17:57 09/22/25 16:45 09/22/25 17:57
Lab Data
09/22/25 16:51
09/22/25 13:25
Laboratory Results
09/22/25 09/22/25
13:25 16:51
PT 18.5 H 16.5 H
INR 1.49 1.28
APTT 29.1 28.5
pH 7.37
pCO2 41
pO2 152 H
HCO3 23.7
O2 Delivery Level
Diagnostic Testing:
Physical Exam
-
HEENT: Normocephalic, Anicteric and Other (ETT in place)
Cardiovascular: S1/S2 and Peripheral Edema (negative)
Respiratory: Wheeze (negative), Rhonchi (negative), Non-Labored Respirations and Other (Mechanical breath sounds heard bilaterally; bilateral pleural chest tubes + mediastinal chest tubes x 2)
GI: Soft, Non Distended, Non Tender and Normal Bowel Sounds
Neurology: Tremors (negative) and Other (Sedated)
Skin: Warm and Dry
General: Respiratory Distress (negative), Comfortable, Fever (negative) and Chills (negative)
Assessment
-
Assessment: 60-year-old male active tobacco smoker with a past medical history of DM type II, extensive PAD, hypertension, DJD, GERD, left femoral artery stenosis, lower extremity claudication and gait abnormality who presented from [facility] on
09/17/2025 for evaluation of CABG due to abnormal left heart catheterization showing multivessel CAD. Initially went to [facility] on 09/17/2025 for elective left heart catheterization due to high risk of CAD in the setting of tobacco use, uncontrolled
diabetes and lower extremity claudication with PAD. He underwent a gated Myoview stress test in January 2025 which was negative for scar or ischemia with a reported EF of 73%. Left heart cath performed at [facility] showed triple-vessel CAD. Patient
denies chest pain, shortness of breath or lower extremity edema. Patient was transferred here to for evaluation for CABG. CT surgery was consulted and also vascular surgery consulted given his history of PAD. MARJORIE studies were reviewed and
there is SFA occlusion on the right side with no left-sided severe profundus stenosis and distal SFA stenosis. No indication for urgent revascularization and follow-up in the vascular office was recommended. Full PFT on 09/21/2025 showed class I
COPD with no air trapping or hyperinflation, and preserved gas exchange capacity (DLCO: 93%). CT surgery recommended surgical revascularization which the patient consented to. On 09/22/2025, he underwent CABG x 3 with left atrial appendage
exclusion. There were no complications and was transferred postoperatively to the CVICU with security assistant service consulted for additional management/recommendations.
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
Impression:
#Multivessel CAD s/p CABG x 3+ left atrial appendage exclusion (POD #0)
#Acute anemia due to above
#Hypocalcemia
#Extensive PAD
#Active tobacco use
#COPD (Gold class I with a significant bronchodilator response without evidence of air trapping or hyperinflation and with preserved gas exchange capacity via PFTs on 09/21/2025)
#DM type II
#Hyperlipidemia
Plan:
Ventilator settings reviewed
FiO2 will be weaned to maintain SpO2 >90-94%
Minute ventilation will be adjusted
Arterial blood gases will be monitored
Spontaneous breathing trial will be attempted with hopeful extubation after anesthesia/sedation wear off
prn nebulized bronchodilators - not currently bronchospastic
Pulmonary artery catheter parameters will be followed
Pressors/antihypertensive/inotropes/diuretics will be provided as needed
Maintain MAP>65
Replete electrolytes with K>4, Mg>2
Monitor chest tube output
Monitor hemoglobin
Monitor platelet count and coags
Transfuse blood products as needed to maintain Hb>7g/dL, plt>50k (given post-operative status)
CT surgery managing chest tubes
Monitor blood sugar to maintain euglycemia with goal BG 110-140
Insulin drip per protocol
Aspiration precautions
VAP prevention protocol
DVT prophylaxis
Early nutrition
Early mobilization
Critical care statement: A total of 46 minutes of critical care time was provided for this patient today. This includes management of ventilator, spontaneous breathing trial, arterial blood gases, pressors, of unstable vital signs, evaluation of the
patient at bedside, reviewing the patient's pertinent medical records including radiographs, microbiology, laboratory evaluations, and discussion with primary team and critical care nursing.
[2025-09-22 12:41] LABS: B.E. - POC -2.0 mmol/L; Glucose - POC 92 mg/dl (70-99); HCO3 - POC 24 mmol/L (21-28); Hematocrit - POC 27 % PCV (42-52); Hemodilution- POC Yes; Hemoglobin Calculated - POC 9.3; Ionized Calcium - POC 1.29 mmol/L (1.15-1.33); Lactate - POC 2.03 mmol/L (0.36-0.75); O2 Saturation %Calculated-POC 99.8 % (94-98); PCO2 - POC 43 mmHg (35-48); PO2 - POC 261 mmHg (83-108); POC Comment POST; Potassium - POC 4.0 mmol/L (3.5-5.1); Sodium - POC 140 mmol/L (136-145); Specimen Type - POC Arterial; pH - POC 7.35 (7.35-7.45)
[2025-09-22] MEDS: TRICOR PO (12:54)
[2025-09-22] MEDS: NICODERM TRANSDERMAL TRANSDERM (12:54)
[2025-09-22] MEDS: LEXAPRO PO (12:54)
[2025-09-22] MEDS: NOVOLOG FLEXPEN SC ×2 (12:55→15:09)
[2025-09-22] MEDS: ZETIA PO (12:55)
[2025-09-22] MEDS: SENOKOT PO ×2 (12:56→20:19)
--- NOTE | 2025-09-22 12:56 | W.CVOR.SURPR ---
CVOR Surgeon Immed Pre Op
-
I have examined this patient prior to performance of the scheduled procedure.
The patient's condition is unchanged from the time of the dictated/written History and
Physical and the patient is able to undergo the scheduled procedure.
--- NOTE | 2025-09-22 12:56 | W.IMMPOSTOP ---
Addendum entered and electronically signed by Giorgio Cox MD 09/22/25 14:39:
[id number]
Original Note:
Surgical Immed Post Op Note
-
CARDIAC SURGERY OPERATIVE NOTE:
Preoperative Dx:
MVCAD
Extensive PAD
CAD
Active smoking
COPD
DM II
HLD
Postoperative Dx:
Same
Procedures:
1) Median sternotomy
2) Takedown of BRIAN (narrow pedicle)
3) Endoscopic harvest/prep of RLE GSV
4) CABG x 3 (BRIAN to LAD, GSV to OM (middle branch), GSV to RPDA)
5) ELAA
Surgeon:
Giorgio Cox M.D.
Heavy Forger:
Vanessa Mojica P.A.-CTaisha; seed analysis laboratory assistant throughout; blhkbi-nocm-kakz sternotomy closure
Keely Hurtado P.A.-C.; endoscopic harvest/prep of RLE GSV; idzdli-sjmr-admo sternotomy closure
Anesthesia:
Shaun Varghese M.D. and Sona Gupta, C.R.N.A.
Perfusion:
Tarun Tejada, XC: 64min, CPB: 101min
Findings:
BRIAN was a very healthy vessel w/ extremely brisk blood flow; ELD 3.25mm
GSV was also very healthy conduit w/ very consistent ELD @ 3.50mm
LAD was visible on the epicardial surface, moderate scattered calcifications, anastomosis performed at midpoint; ELD 3.00mm - performed over 1.5mm shunt to aid in visualization 2' to non-coronary collateral flow
OM was visible on the epicardial surface, moderate scattered calcifications, anastomosis performed to largest, middle branch [lower division of OM3], ELD 2.75mm
RPDA was visible on the epicardial surface, scant calcifications, palpable calcium in anterior AV groove RCA, ELD 2.75mm
ELY was small w/ 'windsock' morphology, successfully occluded at its base
OM proximal looked slightly flat - U/S flow probe assessment w/ lower than expected flow; proximal anastomosis reperformed under partial clamp w/ significantly improved appearance and U/S flow
Post-HIEU: LVEF 60% w/o RWMA, RV normal, No VHD, ELY confirmed excluded, mobile 1cm atheromatous plaque in proximal descending aorta unchanged from preop
Complications:
None
Transfusions:
None
Implants:
AtriCure AtriClip 35mm, LOT [id number]
CT x 4 (B/L pleural, inferior mediastinal, superior mediastinal)
Sternal wires x 7
Sternal 'X'plate w/ 6 - 14mm and 2 - 12mm screws
Sternal 'Square' plate w/ 4 - 12mm screws
Condition:
73 sinus (0.2/0.2), 106/54, CVP: 19, 100%
GTTS: levophed 7, precedex 0.5, insulin OFF
Stable/guarded to CVICU
[2025-09-22] MEDS: COREG PO (12:57)
[2025-09-22] MEDS: GLUCOPHAGE PO (12:57)
[2025-09-22] MEDS: PROTONIX PO (12:57)
[2025-09-22] MEDS: ACTOS PO (12:57)
[2025-09-22] MEDS: ASPIR LOW (ENTERIC COATED) PO (12:57)
[2025-09-22 13:27] LABS: Glucose - Point of Care 142 mg/dl (70-99)
[2025-09-22 13:38] LABS: B.E. -1.5 mmol/L; HCO3 23.7 mmol/L (21-28); O2 Saturation % 99.0 % (94-98); PCO2 41 mmHg (35-48); PO2 152 mmHg (83-108); Potassium 4.4 mMOL/L (3.5-5.1); Sodium 136 mMOL/L (136-145)
[2025-09-22 13:43] LABS: Hematocrit 30.4 % (39.0-52.0); Hemoglobin 10.5 g/dL (13.0-18.0); Platelet Count 188 10^3/uL (130-400)
[2025-09-22 13:45] LABS: INR 1.49; PT 18.5 Sec (11.4-14.6)
[2025-09-22 13:46] LABS: APTT 29.1 Sec (23.4-35.0)
[2025-09-22] MEDS: DILAUDID 0.5 MG IV (13:49)
[2025-09-22] MEDS: ANCEF 10 IV ×2 (13:52)
[2025-09-22] MEDS: NSS 500 IV (13:52)
[2025-09-22] MEDS: NEURONTIN PO ×3 (13:52→21:09)
--- NOTE | 2025-09-22 13:55 | PTCARENOTE ---
Received pt from CVOR team. Intubated and sedated on Vent. #8 ETT at 23 cm rT lip. Vent per anesthesia. SIMV 16/ 500/5/5 40% pulse ox of 99%. SR 70 on monitor. Chest tubes x 4 to - 20 cm suction. No air leak or crepitus noted. Abdomen soft
and non tender. Ford draining clear yellow urine. Surgical sites c ,d ,i. Pulses palpable. Drips infusing on arrival as follows: Levophed, Precedex. Rt radial A line transducing. Line leveled, recalibrated and flushed. Plan discussed with
team
[2025-09-22 14:18] LABS: Blood Urea Nitrogen 17 mg/dl (9-20); Estimated Creatinine Clearance 84 ml/min; Glucose 128 mg/dl (70-99); Magnesium 2.4 mg/dl (1.6-2.3)
--- NOTE | 2025-09-22 14:22 | W.PN.CD ---
Today's Communication / Plan
-
POD 0 from CABG
Wean sedation and pressors as tolerated
Routine postoperative care per CT surgery
We will follow along with you
Impression / Plan
-
60-year-old Ghanaian-speaking gentleman with history of HTN, diabetes, hyperlipidemia, 40+ smoking abuse, severe peripheral artery disease and triple-vessel coronary artery disease, s/p CABG 09/22/[address] Cox.
Severe multivessel coronary artery disease s/p CABG
- Cardiac catheterization 09/17/2025: Triple-vessel disease.
- CABG x 3 (BRIAN to LAD, GSV to OM (middle branch), GSV to RPDA) by Dr. Cox on 09/22/2025
- Echo: EF 65-70%, no sig valve disease
- Continue aspirin, clopidogrel, atorvastatin, metoprolol, fenofibrate, and Zetia
- Continue routine postoperative care per CV surgery
- Wean norepinephrine as tolerated
HTN
- Home carvedilol switched to metoprolol. Trend BPs.
Smoking
- Smoking cessation.
- Nicotine patch
Hyperlipidemia
- Poorly controlled hyperlipidemia with total cholesterol 217 and LDL 153.
- Currently on Lipitor, fenofibrate and Zetia
- would transition statin to crestor 40mg before discharge
Diabetes
- per primary team
Subjective: Intubated. Sedated. On norepinephrine 6 mcg.
Physical Exam
Vital Signs/Labs
Vital Signs
Temp Pulse Resp BP Pulse Ox
98.1 F 74 16 99/58 98
09/22/25 14:02 09/22/25 14:02 09/22/25 14:02 09/22/25 13:27 09/22/25 14:04
09/21/25 09/22/25 09/23/25
06:59 06:59 06:59
Actual Weight 180 lb 12.465 oz 178 lb 9.191 oz
09/22/25 13:25
PT 18.5 Sec (11.4-14.6) H 09/22/25 13:25
INR 1.49 09/22/25 13:25
APTT 29.1 Sec (23.4-35.0) 09/22/25 13:25
Magnesium 2.4 mg/dl (1.6-2.3) H 09/22/25 13:25
Triglycerides 204 mg/dl (10-149) H 09/18/25 04:40
LDL Cholesterol, Calc 153 mg/dl 09/18/25 04:40
VLDL Cholesterol, Calc 40 mg/dl (0-30) H 09/18/25 04:40
HDL Cholesterol 24 mg/dl 09/18/25 04:40
09/17/25
21:40
Ycl-I-Vczceyouoqo Pept 84.8
Physical Exam
Constitutional: Comfortable
Cardiovascular: Rhythm & rate is regular, Pedal edema is absent, S1S2 is normal, Murmur/rub/gallop absent and Rub present
Respiratory: Other (Breathing comfortably on the ventilator)
Neuro/Psych: Other
Other: Other (Sternotomy wound well-approximated without erythema or induration)
Data Reviewed
-
Date of Service: September 22, 2025
Medical Decision Making: Reviewed Test Results, Independent Historian Assessment, Test Interpretation and Review of Case with other Provider
EKG: Tracing Personally Visualized and interpreted
Echo: Report Reviewed by me
Labs: Labs Reviewed by me
[2025-09-22] MEDS: TYLENOL PO ×2 (14:23→21:10)
[2025-09-22] MEDS: VERSED 0.5 MG IV ×2 (14:25→14:42)
[2025-09-22] MEDS: ZOFRAN 4 MG IV (14:40)
[2025-09-22 14:46] LABS: Glucose - Point of Care 131 mg/dl (70-99)
--- NOTE | 2025-09-22 14:48 | PTCARENOTE ---
1440- Pt awoke aburptly. Not following commands, attempting to fight off lines/ETT. Attempt to use Language line Interpreters unsuccessful as pt continued to thrash and gag. Pt given versed as ordered PRN. Able to calm after. Pt s son called
to bedside to assist with interpreting in future.
--- NOTE | 2025-09-22 14:57 | PTCARENOTE ---
Chest tubes with consistent output higher than typical. discussed with CT surgeon, orders obtained to transfuse 1 pk platelets. Awaiting blood product from blood bank
[2025-09-22] MEDS: LR 250 ML IV ×2 (15:00→17:04)
[2025-09-22] MEDS: PACERONE PO ×2 (15:09→21:10)
[2025-09-22] MEDS: LIPITOR PO (15:10)
[2025-09-22] MEDS: OFIRMEV 100 IV (15:53)
--- NOTE | 2025-09-22 15:56 | RESPNOTE ---
15:35 patient extubated and placed on 6L oxymask.
--- NOTE | 2025-09-22 15:59 | PTCARENOTE ---
Pt increasingly agitated with ETT. Unable to calm him down with Son interpreting. Dr Cox at bedside. Pt able to follow commands. Dr Cox ordered pt to be extubated at this time. Extubated at 1535 to 6 L Nc. Pt noted to have very loud
snoring with periods of apnea. Pt son states he has sleep apnea at baseline. Simple mask at 6 L placed on patinet pulse ox maintained. Will monitor closely.,
[2025-09-22 16:05] LABS: Glucose - Point of Care 102 mg/dl (70-99)
[2025-09-22 16:53] LABS: Glucose - Point of Care 108 mg/dl (70-99)
--- NOTE | 2025-09-22 17:01 | PTCARENOTE ---
A line positional, attempt to reposition slightly helpful. Bp labile at times. LR bolus as needed. Levophed titrated. 4 Hr labs obtained and sent. Appropriate when awake. Son at bedside
[2025-09-22 17:16] LABS: INR 1.28; PT 16.5 Sec (11.4-14.6)
[2025-09-22 17:17] LABS: APTT 28.5 Sec (23.4-35.0); Fibrinogen 261 MG/DL (199-459)
[2025-09-22 17:21] LABS: Hematocrit 28.3 % (39.0-52.0); Hemoglobin 9.7 g/dL (13.0-18.0); Platelet Count 239 10^3/uL (130-400)
[2025-09-22 18:01] LABS: Glucose - Point of Care 94 mg/dl (70-99)
[2025-09-22] MEDS: LOW STRENGTH ASPIRIN 81 MG PO (18:09)
--- NOTE | 2025-09-22 19:45 | PTCARENOTE ---
Patient received from RN @ 1900. Patient lying in bed w/ call del castillo in reach. Patient AOx3 and [place] speaking. Improvement Lead in use. Patient states pain is 0/10. SR on monitor. BP 118/57 HR 72. Heart sound audible but distant. Radial and pedal
pulses present. No edema noted. Lungs diminished bilaterally throughout. POX 100% on oxygen mask @ 6L. IS and deep breathing encouraged. 2x mediastinal CT and 2x pleural CT set to -20 suction draining red fluid. No crepitus, tidaling, or air
leaks noted. Hypoactive bowel sounds and no nausea noted. Ford draining clear yellow urine. Sternal incision well approximated KIM. Right groin puncture well approximated HOUSE CARPENTER. Right saphenous Reji wrap C/D/I. RIJ cordis w/ slick CVP 8. Right
radial A-line leveled and zeroed. PIV patent and intact. Levo and Insulin infusing per protocal. See worklist for more details.
[2025-09-22 19:56] LABS: Glucose - Point of Care 146 mg/dl (70-99)
[2025-09-22 20:05] LABS: B.E. -4.2 mmol/L; HCO3 22.6 mmol/L (21-28); O2 Saturation % 99.2 % (94-98); PCO2 48 mmHg (35-48); PO2 137 mmHg (83-108); Potassium 4.9 mMOL/L (3.5-5.1)
[2025-09-22] MEDS: ANCEF 5 IV (20:09)
[2025-09-22] MEDS: DILAUDID 0.25 MG IV (20:14)
--- NOTE | 2025-09-22 20:36 | PTCARENOTE ---
Patient ABG acidotic. CT COLIN Ramos aware. Respiratory at bedside. Placed on Bipap 10/5 2L. POX 95%.
[2025-09-22] MEDS: LEVOPHED 250 IV (20:47)
--- NOTE | 2025-09-22 20:57 | PTCARENOTE ---
Patient not tolerating Bipap. Patient complains they can not breath and removed mask themselves.
[2025-09-22] MEDS: NICODERM TRANSDERMAL 14 MG TRANSDERM (21:05)
[2025-09-22 21:38] LABS: B.E. -3.8 mmol/L; HCO3 21.5 mmol/L (21-28); O2 Saturation % 99.4 % (94-98); PCO2 39 mmHg (35-48); PO2 153 mmHg (83-108)
[2025-09-22 22:09] LABS: Glucose - Point of Care 107 mg/dl (70-99)
[2025-09-22] MEDS: SODIUM BICARBONATE 50 MEQ IV (22:20)
[2025-09-22] MEDS: CALCIUM GLUCONATE 100 IV (22:28)
[2025-09-22] MEDS: TORADOL 15 MG IV (23:10)
[2025-09-22 23:38] LABS: B.E. 0.3 mmol/L; HCO3 25.4 mmol/L (21-28); O2 Saturation % 99.6 % (94-98); PCO2 42 mmHg (35-48); PO2 128 mmHg (83-108); Potassium 4.1 mMOL/L (3.5-5.1)
[2025-09-22 23:41] LABS: O2 Therapy 2L
[2025-09-22 23:54] LABS: Glucose - Point of Care 86 mg/dl (70-99)
[2025-09-23] VITALS (61 sets, daily range): BP systolic 63–145; BP diastolic 37–67; PULSE 75; O2SAT 94–99; BMI 33.4
--- NOTE | 2025-09-23 00:08 | PTCARENOTE ---
Patient reassessed. Patient states his pain is well controlled. SR on monitor. BP 112/49 HR 70 POX 99% 2L NC.
[2025-09-23] MEDS: LR 250 ML IV (01:27)
[2025-09-23 02:05] LABS: Glucose - Point of Care 123 mg/dl (70-99)
[2025-09-23 03:57] LABS: Glucose - Point of Care 104 mg/dl (70-99)
[2025-09-23 04:09] LABS: Hematocrit 25.7 % (39.0-52.0); Hemoglobin 8.6 g/dL (13.0-18.0); Mean Corp Hgb Conc. 33.5 g/dL (33.0-37.0); Mean Corpuscular Volume 91.8 fL (80.0-94.0); Platelet Count 212 10^3/uL (130-400); Red Cell Dist. Width 12.7 % (11.5-14.5)
[2025-09-23 04:11] LABS: B.E. 0.7 mmol/L; HCO3 25.4 mmol/L (21-28); O2 Saturation % 99.5 % (94-98); O2 Therapy 2 L; PCO2 40 mmHg (35-48); PO2 136 mmHg (83-108); Potassium 4.3 mMOL/L (3.5-5.1)
[2025-09-23 04:37] LABS: Blood Urea Nitrogen 24 mg/dl (9-20); Calcium 8.6 mg/dl (8.4-10.2); Carbon Dioxide 28 mmol/L (22-30); Chloride 108 mmol/L (98-107); Estimated Creatinine Clearance 69 ml/min; Glucose 89 mg/dl (70-99); Magnesium 2.0 mg/dl (1.6-2.3); Potassium 4.1 mmol/L (3.5-5.1); Sodium 137 mmol/L (135-145); eGFR > 60.00
[2025-09-23] MEDS: ANCEF 5 IV ×2 (05:10→11:29)
[2025-09-23] MEDS: TYLENOL 975 MG PO ×3 (05:25→21:00)
--- NOTE | 2025-09-23 05:33 | PTCARENOTE ---
Patient reassessed. Labs drawn. EKG obtained. SR on monitor. VSS.
[2025-09-23 06:09] LABS: Glucose - Point of Care 100 mg/dl (70-99)
[2025-09-23] MEDS: LIDOCAINE 4% PATCH 1 PATCH TOPICAL (07:42)
[2025-09-23] MEDS: LOW STRENGTH ASPIRIN 81 MG PO (07:42)
[2025-09-23] MEDS: PACERONE 200 MG PO ×2 (07:42→15:11)
[2025-09-23] MEDS: TORADOL 15 MG IV ×2 (07:42→15:11)
[2025-09-23] MEDS: LEVOPHED 250 IV (07:43)
[2025-09-23] MEDS: PLAVIX 75 MG PO (07:43)
[2025-09-23] MEDS: PROTONIX 40 MG PO (07:43)
[2025-09-23] MEDS: NEURONTIN 100 MG PO ×3 (07:43→21:00)
[2025-09-23] MEDS: LEXAPRO 10 MG PO (07:43)
[2025-09-23] MEDS: NICODERM TRANSDERMAL 14 MG TRANSDERM (07:43)
[2025-09-23] MEDS: MAGNESIUM OXIDE PO (07:44)
[2025-09-23] MEDS: TRICOR PO (07:44)
[2025-09-23] MEDS: SENOKOT 8.6 MG PO ×2 (07:44→20:56)
[2025-09-23] MEDS: LOPRESSOR PO (07:44)
[2025-09-23] MEDS: BACTROBAN 2% OINTMENT 1 APPLIC NASAL ×2 (07:44→20:56)
[2025-09-23] MEDS: ZETIA PO (07:45)
[2025-09-23 07:54] LABS: Glucose - Point of Care 98 mg/dl (70-99)
[2025-09-23] MEDS: NOVOLOG FLEXPEN 4 UNITS SC ×2 (07:54→17:10)
--- NOTE | 2025-09-23 07:57 | W.PN.CD ---
Today's Communication / Plan
-
Wean levo as able
Cont post-op care
Impression / Plan
-
60-year-old Swiss-speaking gentleman with history of HTN, diabetes, hyperlipidemia, 40+ smoking abuse, severe peripheral artery disease and triple-vessel coronary artery disease, s/p CABG 09/22/[address] Cox.
Severe multivessel coronary artery disease s/p CABG
- Cardiac catheterization 09/17/2025: Triple-vessel disease.
- CABG x 3 (BRIAN to LAD, GSV to OM (middle branch), GSV to RPDA) by Dr. Cox on 09/22/2025
- Echo: EF 65-70%, no sig valve disease
- Continue aspirin, clopidogrel, atorvastatin, metoprolol, fenofibrate, and Zetia
- Continue routine postoperative care per CV surgery
- Wean norepinephrine as tolerated
HTN
- Home carvedilol switched to metoprolol. Trend BPs.
Smoking
- Smoking cessation.
- Nicotine patch
Hyperlipidemia
- Poorly controlled hyperlipidemia with total cholesterol 217 and LDL 153.
- Currently on Lipitor, fenofibrate and Zetia
- would transition statin to crestor 40mg before discharge
Diabetes
- per primary team
Subjective: remains on levophed feeling OK
Physical Exam
Vital Signs/Labs
Vital Signs
Temp Pulse Resp BP Pulse Ox
99.4 F 72 18 113/52 99
09/23/25 07:00 09/23/25 07:50 09/23/25 07:50 09/23/25 07:30 09/23/25 07:45
09/22/25 09/23/25 09/24/25
06:59 06:59 06:59
Actual Weight 178 lb 9.191 oz 194 lb 7.163 oz
09/23/25 03:54
09/23/25 03:54
PT 16.5 Sec (11.4-14.6) H 09/22/25 16:51
INR 1.28 09/22/25 16:51
APTT 28.5 Sec (23.4-35.0) 09/22/25 16:51
Magnesium 2.0 mg/dl (1.6-2.3) 09/23/25 03:54
Triglycerides 204 mg/dl (10-149) H 09/18/25 04:40
LDL Cholesterol, Calc 153 mg/dl 09/18/25 04:40
VLDL Cholesterol, Calc 40 mg/dl (0-30) H 09/18/25 04:40
HDL Cholesterol 24 mg/dl 09/18/25 04:40
09/17/25
21:40
Fni-C-Llnqzdogvad Pept 84.8
Physical Exam
Constitutional: No acute distress
EENT: Anicteric
Cardiovascular: Rhythm & rate is regular
Respiratory: Respiratory effort normal
GI: Soft
Neuro/Psych: AO x 3
Data Reviewed
-
Date of Service: September 23, 2025
EKG: Tracing Personally Visualized and interpreted (sr)
Echo: Report Reviewed by me
Labs: Labs Reviewed by me
--- NOTE | 2025-09-23 08:10 | W.PN.CT ---
Today's Communication / Plan
-
-pod #1
-no significant issues overnight
-respiratory/metabolic acidosis-didn't tolerate bipap postop
-gave Ca and 1 bicarb overnight
-c/o numbness in both hands- has edema b/l - reassured
-has COPD - avoid oversedation, minimize narcotics
-mVO2 78.7. Drips: Insulin, Levo 5
-CT outputs: 2 meds 115/560, 2 pleur 75/335 in 12/24 hrs.
-? accuracy of BPs by cuff b/l (getting sbp 80s-90s by cuff when a-line BP is 108)
-Hg 8.6, Cr slightly trended up from 0.9 to 1.1 today - getting 1pRBC
-deline
-continue insulin
-re-started Nicotine patch
-current meds (ASA, Plavix, Lipitor, Tricor, Zetia, Amio, Lexapro, Lopressor, Gabapentin, Protonix)
-monitor Qt on Amio and Lexapro
-encourage IS, OOB
Assessment / Plan
-
-Severe 3v CAD- s/p CABG x 3 (BRIAN to LAD, GSV to OM (middle branch), GSV to RPDA); ELAA with AtriClip 35mm on 09/22/[address] Cox, pod #1
-Post-HIEU: LVEF 60% w/o RWMA, RV normal, No VHD, ELY confirmed excluded, mobile 1cm atheromatous plaque in proximal descending aorta unchanged from preop
-Plavix washout, last dose 09/17/25
-HTN
-HLD
-T2DM x 20 yrs (A1C 5.9)
-Class 1 obesity (BMI 31)
-COPD
-Current tobacco abuse (40 pk/yr)
-PAD with B/L SFA 90% stenosis, B/L anterior tibial occlusion
-Carotid artery stenosis, >70% JOHN
-Acute postop blood loss anemia - no transfusion
-Acute postop atelectasis/pulmonary insufficiency
-Acute postop respiratory and metabolic acidosis
-Acute postop hypovolemia with subsequent hypervolemia
Discussed patient care with: Nursing and Care Team
Subjective
-
Date of Service: September 23, 2025
Objective Data
-
PT 16.5 Sec (11.4-14.6) H 09/22/25 16:51
INR 1.28 09/22/25 16:51
APTT 28.5 Sec (23.4-35.0) 09/22/25 16:51
Vital Signs
Vital Signs
Temp Pulse Resp BP Pulse Ox
99.2 F 70 8 94/56 99
09/22/25 23:55 09/23/25 00:05 09/23/25 00:05 09/23/25 00:00 09/23/25 00:05
CT Intake/Output/Weight
09/22/25 09/22/25 09/23/25
06:59 18:59 06:59
Intake Total 1406.8 / 1666.2 259.4 / 1666.2
Output Total 1454 / 2004
Balance -48.2 / -338.8 -290.6 / -338.8
SaO2: 99
Physical Exam
-
General: Awake and AOx3
Cardiovascular: Regular rate & rhythm, No Murmurs and No Rub
Respiratory: Decreased Breath Sounds
Sternum: Stable
Incision: Clean, Dry and Intact
Extremities: Edema +1 (hands b/l. )
Abdomen: soft, nontender, nondistended, decreased bowel sounds
Data Reviewed
-
Lab Results: Results Reviewed
Medications: Active Meds Reviewed
Chest X-Ray: Report Reviewed and Image Reviewed
ECG: Report Reviewed and Image Reviewed
--- NOTE | 2025-09-23 08:12 | PTCARENOTE ---
Assumed care of patient from shift supervisor rn RN. CHRISTA x 3. Using Label Paster services on i pad, Pt informed of plan of care for this morning, Pts questions addressed. Sr on monitor 70. RT radial A line transducing. Leveled, and recalibrated, and
flushed. 2 L NC 99%. Chest tubes x 4 to - 20 cm suction. No air leak or crepitus noted. Abdomen soft and non tender, tolerating liquids. Passing flatus. Ford draining clear yellow urine. DP pulses audible by doppler. No edema appreciated.
1 Unit PRBC's transfusing. Remains on Levophed and insulin.
--- NOTE | 2025-09-23 08:17 | PN.DE.MGMTRT ---
Insulin Management
- -
09/23/2025 Diabetes Management Consult
Patient transferred from [facility] 09/18 s/p cardiac cath @ [facility] 09/17 which showed triple vessel disease. PMH CAD, diabetes, tobacco abuse, COPD, HTN, HCL, PAD, BPH. Prior to admission was taking metformin 1000 mg BID and Farxiga 5 mg daily. A1C on
admission 5.9%, cr today 1.1, eGFR > 60
POD 1 s/p CABG x 3. Patient is awake alert and oriented able to discuss diabetes care. Patient is South Korean speaking, interpreter for the deaf [id number], used to communicate with patient and . Patient states he has had diabetes 20+ years and sees family
doctor for ongoing diabetes care. He has a glucose meter and tests glucose.
Currently receiving Critical Care Glycemic protocol insulin infusion at .6 to 2.6 units of insulin per hour. Per protocol will continue glycemic protocol insulin infusion today and assess for readiness to transition to oral medication in AM.
Discussed with nurse.
Will follow.
Diabetes History
- -
Type of Diabetes: 2
Pre-Admission Diabetes Regimen
09/22/25 09/23/25
13: 03:54
Creatinine 0.9 1.1
Lab Results
Hemoglobin A1c 5.9 % (4.0-5.9) 09/18/25 04:40
Insulin Pump Settings
IP Diabetes Regimen
09/22/25 09/22/25 09/22/25
13:24 13:25 14:44
Glucose 128 H
POC Glucose 142 H 131 H
09/22/25 09/22/25 09/22/25
16:01 16:50 17:59
Glucose
POC Glucose 102 H 108 H 94
09/22/25 09/22/25 09/22/25
19:54 22:08 23:52
Glucose
POC Glucose 146 H 107 H 86
09/23/25 09/23/25 09/23/25
02:03 03:53 03:54
Glucose 89
POC Glucose 123 H 104 H
09/23/25 09/23/25
06:07 07:51
Glucose
POC Glucose 100 H 98
Meal type: Lunch
Patient Education
--- NOTE | 2025-09-23 08:20 | W.PN.INTV ---
Today's Communication / Plan
Recommendations
Postoperative management as per CT surgery
Removal of bilateral pleural chest tubes per CT surgery team
Pain control
Encourage incentive spirometer
Up OOB as tolerated
Goal BG 110�140
Hall Supervisor service will continue to follow along while patient remains in the CVICU. Once transferred to CVICU�telemetry status then we will sign off at that time.
Assessment
-
Assessment: 60-year-old male active tobacco smoker with a past medical history of DM type II, extensive PAD, hypertension, DJD, GERD, left femoral artery stenosis, lower extremity claudication and gait abnormality who presented from [facility] on
09/17/2025 for evaluation of CABG due to abnormal left heart catheterization showing multivessel CAD. Initially went to [facility] on 09/17/2025 for elective left heart catheterization due to high risk of CAD in the setting of tobacco use, uncontrolled
diabetes and lower extremity claudication with PAD. He underwent a gated Myoview stress test in January 2025 which was negative for scar or ischemia with a reported EF of 73%. Left heart cath performed at [facility] showed triple-vessel CAD. Patient
denies chest pain, shortness of breath or lower extremity edema. Patient was transferred here to for evaluation for CABG. CT surgery was consulted and also vascular surgery consulted given his history of PAD. MARJORIE studies were reviewed and
there is SFA occlusion on the right side with no left-sided severe profundus stenosis and distal SFA stenosis. No indication for urgent revascularization and follow-up in the vascular office was recommended. Full PFT on 09/21/2025 showed class I
COPD with no air trapping or hyperinflation, and preserved gas exchange capacity (DLCO: 93%). CT surgery recommended surgical revascularization which the patient consented to. On 09/22/2025, he underwent CABG x 3 with left atrial appendage
exclusion. There were no complications and was transferred postoperatively to the CVICU with coloring checker service consulted for additional management/recommendations.
Chronic conditions MANAGER KNOWLEDGE: Hypertension, DM type II, PAD, COPD, DJD, knee osteoarthritis, GERD, left femoral artery stenosis, lower extremity claudication, gait abnormality
Impression:
#Multivessel CAD s/p CABG x 3+ left atrial appendage exclusion (POD #1)
#Acute anemia due to above
#Hypocalcemia
#Extensive PAD
#Active tobacco use
#COPD (Gold class I with a significant bronchodilator response without evidence of air trapping or hyperinflation and with preserved gas exchange capacity via PFTs on 09/21/2025)
#DM type II
#Hyperlipidemia
Plan:
Patient was extubated yesterday to 6 L/min via OxyMask; now on room air breathing comfortably saturating 95%
Maintain SpO2 >90-94%
prn nebulized bronchodilators - not currently bronchospastic
Encourage incentive spirometer q1hr while awake
Pulmonary artery catheter parameters will be followed
Pressors/antihypertensive/inotropes/diuretics will be provided as needed
Maintain MAP>65
Replete electrolytes with K>4, Mg>2
Monitor chest tube output (bilateral pleural chest tubes)
Monitor hemoglobin
Monitor platelet count and coags
Transfuse blood products as needed to maintain Hb>7g/dL, plt>50k (given post-operative status)
CT surgery managing chest tubes
Monitor blood sugar to maintain euglycemia with goal BG 110-140
Insulin drip per protocol
Aspiration precautions
DVT prophylaxis
Early nutrition
Early mobilization
Hall Supervisor service will continue to follow along while patient remains in the CVICU. Once transferred to CVICU�telemetry status then we will sign off at that time.
Critical care statement: A total of 37 minutes of critical care time was provided for this patient today. This includes management of ventilator, spontaneous breathing trial, arterial blood gases, pressors, of unstable vital signs, evaluation of the
patient at bedside, reviewing the patient's pertinent medical records including radiographs, microbiology, laboratory evaluations, and discussion with primary team and critical care nursing.
Subjective Dataa
Subjective Data
Date of Service:
Date of Service: September 23, 2025
Chief Complaint: Hall Supervisor Follow Up
Subjective:
Patient seen today at bedside. Extubated yesterday to 6 L oxymask. When I saw the patient he was on room air breathing comfortably. Heart rate 69. Currently on insulin drip at 0.7 units/hr and Levophed at 2 mcg/min. He says that his left leg is
numb. He does have a history of PAD and usually his right leg is 1 bothersome more than the left.
Review of Systems
General: Other (Negative unless mentioned above)
Objective Data
Data Reviewed
Vital Signs / I&O / Oxygen:
Vital Signs
Temp Pulse Resp BP Pulse Ox
99.4 F 76 15 101/49 98
09/23/25 06:00 09/23/25 06:00 09/23/25 06:00 09/23/25 06:00 09/23/25 06:00
Intake and Output
09/21/25 09/22/25 09/23/25
06:59 06:59 06:59
Intake Total 480 / 480 1908.5 / 1908.5
Output Total 2415 / 2415
Balance 480 / 480 -506.5 / -506.5
SaO2 [SIMV] 99
SaO2 98
Nasal Cannula flow liters per 2
minute
Physical Exam
General: Respiratory Distress (negative), Chills (negative) and Other (Uncomfortable in the left leg due to numbness)
HEENT: Normocephalic
Cardiovascular: S1-S2, Peripheral Edema (negative) and Cool Extremities (Mainly in the feet bilaterally)
Respiratory: Wheeze (negative), Crackles (Bibasilar), Rhonchi (negative), Non-Labored Respirations, Stridor (negative) and Chest Tube (bilateral pleural chest tubes)
GI: Soft, Non Distended, Non Tender and Normal Bowel Sounds
Neurology: Awake, Alert and Tremors (negative)
Skin: Warm, Dry, Cyanosis and Jaundice
Labs/Micro/Reports
Lab Data
09/23/25 03:54
09/23/25 03:54
Laboratory Results
09/22/25 09/22/25 09/22/25
16:51 19:54
PT 18.5 H 16.5 H
INR 1.49 1.28
APTT 29.1 28.5
pH 7.37 7.28 L
pCO2 41 48
pO2 152 H 137 H
HCO3 23.7 22.6
O2 Delivery Level
09/22/25 09/22/25 09/23/25
21:27 23:32 03:54
PT
INR
APTT
pH 7.35 7.39 7.41
pCO2 39 42 40
pO2 153 H 128 H 136 H
HCO3 21.5 25.4 25.4
O2 Delivery Level 2l 2 l
[2025-09-23 10:02] LABS: Glucose - Point of Care 257 mg/dl (70-99)
[2025-09-23 11:09] LABS: Glucose - Point of Care 169 mg/dl (70-99)
[2025-09-23] MEDS: ROXICODONE 5 MG PO ×2 (11:28→22:13)
--- NOTE | 2025-09-23 11:52 | PTCARENOTE ---
Levophed weaned down. Rt IJ slick removed, Rt radial A line removed, manual pressure applied and hemostasis achieved. Assist x 2 oob to chair. BP dipped down to 70's systolic very briefly but returned to normal quickly w/o intervention. No
significant dumping not4ed from chest tubes. Oxygen weaned to room air , 95%. Ford cath removed, and pt provided with Urinal. All of this done using language line regional airline pilot. Pt did Great! Resting in chair after, medicated for pain.
[2025-09-23] MEDS: NSS IV (12:18)
[2025-09-23 13:04] LABS: Glucose - Point of Care 77 mg/dl (70-99)
[2025-09-23] MEDS: NOVOLOG FLEXPEN SC (13:05)
[2025-09-23 13:52] LABS: Glucose - Point of Care 101 mg/dl (70-99)
--- NOTE | 2025-09-23 14:22 | CM ---
Reviewed chart. Met with Mr. Mayorga and his family to review discharge plans. Son states she is feeling well. Prior to admission he resides with his spouse and three children in a two story home without any steps to enter. Prior to admission
he was independent with adls. Will need to see his functional level post surgery to see if he will have any skilled care needs. Medical work-up in progress. The discharge kelly is underdetermined at this time.
[2025-09-23 15:16] LABS: Glucose - Point of Care 170 mg/dl (70-99)
[2025-09-23 15:50] LABS: Glucose - Point of Care 171 mg/dl (70-99)
--- NOTE | 2025-09-23 17:00 | PTCARENOTE ---
Tolerated sitting out in chair x 6 hours. Chest tube atrium changed for Mediastinal chamber d/t knocked over. c/o intermittent lower extremity discomfort from his PVD. Toradol administered. VSS family at bedside.
[2025-09-23 17:05] LABS: Glucose - Point of Care 279 mg/dl (70-99)
[2025-09-23] MEDS: NOVOLIN R INSULIN INFUSION 100 IV (17:47)
[2025-09-23] MEDS: LIPITOR 40 MG PO (17:48)
[2025-09-23 18:09] LABS: Glucose - Point of Care 235 mg/dl (70-99)
[2025-09-23 19:01] LABS: Glucose - Point of Care 180 mg/dl (70-99)
--- NOTE | 2025-09-23 20:00 | PTCARENOTE ---
Assumed care of patient at 1900. AAO x 3, Montenegrin speaking. SR on CM, rates 70; PT pulses via Doppler, no edema. Lungs with rhonchi at the B/L base, 2 L NC HS satting 94+%. Chest tubes x 4 to - 20 cm suction, no air leak, tidaling, or crepitus
noted. Abdomen SNT, tolerating PO intake without nausea. Voiding without difficulty small amounts of urine. RIJ Cordis, PIVx2. With assistance from the CVPA, sternal precautions and fall risk discussed as length, needed some reinforcement for him
and . Call del castillo within reach, assessment of needs ongoing.
[2025-09-23] MEDS: MAGNESIUM OXIDE 400 MG PO (20:56)
[2025-09-23] MEDS: LOPRESSOR 12.5 MG PO (20:57)
[2025-09-23] MEDS: REMOVE LIDOCAINE PATCH 1 PATCH REMOVE (20:57)
[2025-09-23 21:00] LABS: Glucose - Point of Care 113 mg/dl (70-99)
[2025-09-23] MEDS: PACERONE PO (22:07)
[2025-09-23 23:04] LABS: Glucose - Point of Care 101 mg/dl (70-99)
[2025-09-24] VITALS (37 sets, daily range): BP systolic 90–126; BP diastolic 45–73; PULSE 70; O2SAT 98; BMI 32.9
[2025-09-24 01:04] LABS: Glucose - Point of Care 119 mg/dl (70-99)
--- NOTE | 2025-09-24 02:59 | W.PN.CT ---
Today's Communication / Plan
-
-pod #2
-no significant issues overnight. A&O x3, speaks Moroccan and Zimbabwean
-drips: Levo 2, now off
-CT outputs: 2 meds 80/235, 2 pleur 180/370 in 12/24 hrs
-s/p 1 pRBC on 09/23 for Hg 8.6. Hg today is 7.8. Will give 1 pRBC today, followed by Lasix
-monitor for urinary retention. Had 284cc residual this am after voiding 50 cc. Not sure if can tolerate Flomax d/t low BP
-will hold BB while on Levo, continue Amio. Started on Midodrine 10 tid
-follow Cr- 1.6 today (1.1 on 09/23 and 0.9 preop)
-minimize narcs to avoid confusion or respiratory depression (has COPD)
-encourage IS (500 so far), OOB
Assessment / Plan
-
-Severe 3v CAD- s/p CABG x 3 (BRIAN to LAD, GSV to OM (middle branch), GSV to RPDA); ELAA with AtriClip 35mm on 09/22/[address] Cox, pod #2
-Post-HIEU: LVEF 60% w/o RWMA, RV normal, No VHD, ELY confirmed excluded, mobile 1cm atheromatous plaque in proximal descending aorta unchanged from preop
-Plavix washout, last dose 09/17/25
-HTN
-HLD
-T2DM x 20 yrs (A1C 5.9)
-Class 1 obesity (BMI 31)
-COPD
-Current tobacco abuse (40 pk/yr)
-PAD with B/L SFA 90% stenosis, B/L anterior tibial occlusion
-Carotid artery stenosis, >70% JOHN
-Acute postop blood loss anemia - no transfusion
-Acute postop atelectasis/pulmonary insufficiency
-Acute postop respiratory and metabolic acidosis
-Acute postop hypovolemia with subsequent hypervolemia
-ISADORA
Discussed patient care with: Nursing and Care Team
Subjective
-
Date of Service: September 24, 2025
Objective Data
-
PT 16.5 Sec (11.4-14.6) H 09/22/25 16:51
INR 1.28 09/22/25 16:51
APTT 28.5 Sec (23.4-35.0) 09/22/25 16:51
Vital Signs
Vital Signs
Temp Pulse Resp BP Pulse Ox
99 F 67 16 118/61 92
09/24/25 00:00 09/24/25 02:40 09/24/25 02:00 09/24/25 02:30 09/24/25 02:40
CT Intake/Output/Weight
09/23/25 09/23/25 09/24/25
06:59 18:59 06:59
Intake Total 501.7 / 2072.3 963.2 / 1162.4 199.2 / 1162.4
Output Total 960 / 2475 685 / 840 155 / 840
Balance -458.3 / -402.7 278.2 / 322.4 44.2 / 322.4
SaO2: 92
Physical Exam
-
General: Awake and AOx3
Cardiovascular: Regular rate & rhythm, No Murmurs and No Rub
Respiratory: Decreased Breath Sounds, rales at bases b/l, no wheeze
Sternum: Stable
Incision: Clean, Dry and Intact
Abdomen: soft, nontender, nondistended, decreased bowel sounds
Extremities: Edema +1 (hands b/l. )
Data Reviewed
-
Lab Results: Results Reviewed
Medications: Active Meds Reviewed
Chest X-Ray: Report Reviewed and Image Reviewed
ECG: Report Reviewed and Image Reviewed
[2025-09-24 03:08] LABS: Glucose - Point of Care 102 mg/dl (70-99)
[2025-09-24 05:12] LABS: Glucose - Point of Care 116 mg/dl (70-99)
[2025-09-24 05:22] LABS: Blood Urea Nitrogen 32 mg/dl (9-20); Calcium 8.3 mg/dl (8.4-10.2); Carbon Dioxide 29 mmol/L (22-30); Chloride 107 mmol/L (98-107); Estimated Creatinine Clearance 49 ml/min; Glucose 99 mg/dl (70-99); Magnesium 2.1 mg/dl (1.6-2.3); Potassium 3.8 mmol/L (3.5-5.1); Sodium 135 mmol/L (135-145); eGFR 49.02
[2025-09-24 05:52] LABS: Hematocrit 23.4 % (39.0-52.0); Hemoglobin 7.8 g/dL (13.0-18.0); Mean Corp Hgb Conc. 33.3 g/dL (33.0-37.0); Mean Corpuscular Volume 92.1 fL (80.0-94.0); Platelet Count 122 10^3/uL (130-400); Red Cell Dist. Width 13.9 % (11.5-14.5)
[2025-09-24] MEDS: TYLENOL 975 MG PO ×3 (06:01→22:05)
[2025-09-24 07:07] LABS: Glucose - Point of Care 102 mg/dl (70-99)
[2025-09-24] MEDS: PROTONIX 40 MG PO (07:27)
[2025-09-24] MEDS: ZETIA 10 MG PO (07:27)
[2025-09-24] MEDS: TRICOR 145 MG PO (07:27)
[2025-09-24] MEDS: LEXAPRO 10 MG PO (07:27)
[2025-09-24] MEDS: LIDOCAINE 4% PATCH 1 PATCH TOPICAL (07:27)
[2025-09-24] MEDS: SENOKOT 8.6 MG PO ×2 (07:27→20:19)
[2025-09-24] MEDS: NEURONTIN 100 MG PO ×3 (07:27→22:04)
[2025-09-24] MEDS: LOW STRENGTH ASPIRIN 81 MG PO (07:27)
[2025-09-24] MEDS: PLAVIX 75 MG PO (07:28)
[2025-09-24] MEDS: FLEXERIL 5 MG PO (07:28)
[2025-09-24] MEDS: NICODERM TRANSDERMAL 14 MG TRANSDERM (07:28)
[2025-09-24] MEDS: NOVOLOG FLEXPEN SC ×3 (07:28→17:45)
[2025-09-24] MEDS: MAGNESIUM OXIDE 400 MG PO ×2 (07:28→20:19)
[2025-09-24] MEDS: PACERONE 200 MG PO ×3 (07:28→22:04)
[2025-09-24] MEDS: BACTROBAN 2% OINTMENT 1 APPLIC NASAL ×2 (07:29→20:20)
--- NOTE | 2025-09-24 07:35 | W.PN.CD ---
Today's Communication / Plan
-
Monitor Cr
ISB
ambulate if able
Impression / Plan
-
60-year-old Northern Irish-speaking gentleman with history of HTN, diabetes, hyperlipidemia, 40+ smoking abuse, severe peripheral artery disease and triple-vessel coronary artery disease, s/p CABG 09/22/[address] Cox.
Severe multivessel coronary artery disease s/p CABG
- Cardiac catheterization 09/17/2025: Triple-vessel disease.
- CABG x 3 (BRIAN to LAD, GSV to OM (middle branch), GSV to RPDA) by Dr. Cox on 09/22/2025
- Echo: EF 65-70%, no sig valve disease
- Continue aspirin, clopidogrel, atorvastatin, metoprolol, fenofibrate, and Zetia
- Continue routine postoperative care per CV surgery
- off levophed BP borderline
ISADORA
- monitor
HTN
- Home carvedilol switched to metoprolol. Trend BPs.
Smoking
- Smoking cessation.
- Nicotine patch
Hyperlipidemia
- Poorly controlled hyperlipidemia with total cholesterol 217 and LDL 153.
- Currently on Lipitor, fenofibrate and Zetia
- would transition statin to crestor 40mg before discharge
Diabetes
- per primary team
Subjective: feeling good no new complaints
Northern Irish orthotics prosthetics assistant used
Physical Exam
Vital Signs/Labs
Vital Signs
Temp Pulse Resp BP Pulse Ox
98.3 F 65 18 90/51 96
09/24/25 04:00 09/24/25 07:00 09/24/25 07:00 09/24/25 07:00 09/24/25 07:00
09/23/25 09/24/25 09/25/25
06:59 06:59 06:59
Actual Weight 194 lb 7.163 oz 191 lb 9.307 oz
09/24/25 04:42
09/24/25 04:42
PT 16.5 Sec (11.4-14.6) H 09/22/25 16:51
INR 1.28 09/22/25 16:51
APTT 28.5 Sec (23.4-35.0) 09/22/25 16:51
Magnesium 2.1 mg/dl (1.6-2.3) 09/24/25 04:42
Triglycerides 204 mg/dl (10-149) H 09/18/25 04:40
LDL Cholesterol, Calc 153 mg/dl 09/18/25 04:40
VLDL Cholesterol, Calc 40 mg/dl (0-30) H 09/18/25 04:40
HDL Cholesterol 24 mg/dl 09/18/25 04:40
09/17/25
21:40
Err-D-Aqbtnaamhfl Pept 84.8
Physical Exam
Constitutional: No acute distress and Comfortable
EENT: Anicteric
Cardiovascular: Rhythm & rate is regular and Pedal edema is absent
Respiratory: Lungs clear to auscul. and Other (poor inspiratory effort )
GI: Soft
Neuro/Psych: AO x 3
Data Reviewed
-
Date of Service: September 24, 2025
Medical Decision Making: Reviewed Test Results
EKG: Tracing Personally Visualized and interpreted (sr)
Labs: Labs Reviewed by me
--- NOTE | 2025-09-24 07:54 | PTCARENOTE ---
Assumed care of patient from film processing shift supervisor RN. AAO x 3. Tired this morning. Using language line officer lieutenant, Assessment preformed and questions answered. SR on monitor. 2 L NC 96%. IS reinforced. Chest tubes x 4 to - 20 cm suction. No air leak
or crepitus noted. Abdomen soft and nontender. Voiding w/o issue. PT pulses via doppler. Surgical sites c,d,i.
--- NOTE | 2025-09-24 08:22 | PN.DE.MGMTRT ---
Insulin Management
- -
09/24/2025: Diabetes Management Followup
Patient transferred from [facility] 09/18 s/p cardiac cath @ [facility] 09/17 which showed triple vessel disease. PMH: CAD, diabetes, tobacco abuse, COPD, HTN, HCL, PAD, BPH. Prior to admission was taking metformin 1000 mg BID and Farxiga 5 mg daily. A1C on
admission 5.9%, cr today 1.1, eGFR > 60
POD # 2 s/p CABG x 3. Patient is awake alert and oriented, resting in bed, offers no complaints, able to discuss diabetes care.
Patient is Greenlandic speaking, asl interpreter KATE Reyes, used to communicate with patient and via language line.
Patient states he has had diabetes 20+ years and sees family doctor for ongoing diabetes care. He has a glucose meter and tests glucose once a day.
Remains on Critical Care Glycemic protocol insulin infusion at 0.7 to 1.2 units of insulin per hour. Noted for ISADORA with Cr 1.6 (baseline 0.9), eGFR 49.02 today
Based on Cr of 1.6, will continue glycemic protocol insulin infusion throughout today and plan to transition off insulin drip at bedtime.
Tomorrow, if ISADORA has resolved and Cr at baseline, resume his outpatient oral medications in AM: Metformin 500mg BID and Farxiga 5mg daily. Otherwise, start moderate corrective with meals.
Discussed above plan with CVAPP team and Nurse. Will cont to follow.
Diabetes History
- -
Type of Diabetes: 2
Pre-Admission Diabetes Regimen
09/24/25
04:42
Creatinine 1.6 H
Lab Results
Hemoglobin A1c 5.9 % (4.0-5.9) 09/18/25 04:40
Insulin Pump Settings
IP Diabetes Regimen
09/23/25 09/23/25 09/23/25
10:01 11:01 13:02
Glucose
POC Glucose 257 H 169 H 77
09/23/25 09/23/25 09/23/25
13:51 15:10 15:49
Glucose
POC Glucose 101 H 170 H 171 H
09/23/25 09/23/25 09/23/25
17:04 18:07 18:59
Glucose
POC Glucose 279 H 235 H 180 H
09/23/25 09/23/25 09/24/25
20:59 23:03 01:03
Glucose
POC Glucose 113 H 101 H 119 H
09/24/25 09/24/25 09/24/25
03:07 04:42 05:10
Glucose 99
POC Glucose 102 H 116 H
09/24/25
07:06
Glucose
POC Glucose 102 H
Meal type: Breakfast
Amount consumed: 100%
Patient Education
[2025-09-24] MEDS: LASIX 40 MG IV ×2 (08:27→16:14)
--- NOTE | 2025-09-24 08:29 | W.PN.INTV ---
Today's Communication / Plan
Recommendations
Postoperative management as per CT surgery
Removal of bilateral pleural chest tubes per CT surgery team
Pain control
Encourage incentive spirometer
Up OOB as tolerated
Goal BG 110�140
Generator Operator service will continue to follow along while patient remains in the CVICU. Once weaned off insulin drip and transferred to CVICU�telemetry status, then we will sign off at that time.
Assessment
-
Assessment: 60-year-old male active tobacco smoker with a past medical history of DM type II, extensive PAD, hypertension, DJD, GERD, left femoral artery stenosis, lower extremity claudication and gait abnormality who presented from [facility] on
09/17/2025 for evaluation of CABG due to abnormal left heart catheterization showing multivessel CAD. Initially went to [facility] on 09/17/2025 for elective left heart catheterization due to high risk of CAD in the setting of tobacco use, uncontrolled
diabetes and lower extremity claudication with PAD. He underwent a gated Myoview stress test in January 2025 which was negative for scar or ischemia with a reported EF of 73%. Left heart cath performed at [facility] showed triple-vessel CAD. Patient
denies chest pain, shortness of breath or lower extremity edema. Patient was transferred here to for evaluation for CABG. CT surgery was consulted and also vascular surgery consulted given his history of PAD. MARJORIE studies were reviewed and
there is SFA occlusion on the right side with no left-sided severe profundus stenosis and distal SFA stenosis. No indication for urgent revascularization and follow-up in the vascular office was recommended. Full PFT on 09/21/2025 showed class I
COPD with no air trapping or hyperinflation, and preserved gas exchange capacity (DLCO: 93%). CT surgery recommended surgical revascularization which the patient consented to. On 09/22/2025, he underwent CABG x 3 with left atrial appendage
exclusion. There were no complications and was transferred postoperatively to the CVICU with bleacher pulp service consulted for additional management/recommendations.
Chronic conditions BUSINESS RELATIONSHIP MANAGER: Hypertension, DM type II, PAD, COPD, DJD, knee osteoarthritis, GERD, left femoral artery stenosis, lower extremity claudication, gait abnormality
Impression:
#Multivessel CAD s/p CABG x 3+ left atrial appendage exclusion (POD #2)
#Acute anemia due to above
#Hypocalcemia
#Extensive PAD
#Active tobacco use
#COPD (Gold class I with a significant bronchodilator response without evidence of air trapping or hyperinflation and with preserved gas exchange capacity via PFTs on 09/21/2025)
#DM type II
#Hyperlipidemia
Plan:
Patient was extubated on 09/22 to 6 L/min via OxyMask; now between room air and 2L/min, breathing comfortably saturating 95-96%
Maintain SpO2 >90-94%, weaning down supplemental O2 as tolerated
prn nebulized bronchodilators - not currently bronchospastic
Encourage incentive spirometer q1hr while awake
Pulmonary artery catheter parameters will be followed
Pressors/antihypertensive/inotropes/diuretics will be provided as needed
Maintain MAP>65
Replete electrolytes with K>4, Mg>2
Monitor chest tube output (bilateral pleural chest tubes)
Monitor hemoglobin
Monitor platelet count and coags
Transfuse blood products as needed to maintain Hb>7g/dL, plt>50k (given post-operative status)
CT surgery managing chest tubes
Monitor blood sugar to maintain euglycemia with goal BG 110-140
Insulin drip per protocol -to be stopped tonight
Aspiration precautions
DVT prophylaxis
Early nutrition
Early mobilization
Generator Operator service will continue to follow along while patient remains in the CVICU. Once weaned off insulin drip and transferred to CVICU�telemetry status, then we will sign off at that time.
Critical care statement: A total of 41 minutes of critical care time was provided for this patient today. This includes management of ventilator, spontaneous breathing trial, arterial blood gases, pressors, of unstable vital signs, evaluation of the
patient at bedside, reviewing the patient's pertinent medical records including radiographs, microbiology, laboratory evaluations, and discussion with primary team and critical care nursing.
Subjective Dataa
Subjective Data
Date of Service:
Date of Service: September 24, 2025
Chief Complaint: Generator Operator Follow Up
Subjective:
Patient seen today at bedside. Resting in bed in no acute distress. Heart rate 69, BP 123/54 and saturating 98%. Plan to turn off insulin drip tonight.
Review of Systems
General: Other (Negative unless mentioned above)
Objective Data
Data Reviewed
Vital Signs / I&O / Oxygen:
Vital Signs
Temp Pulse Resp BP Pulse Ox
98.9 F 71 18 111/73 93
09/24/25 16:23 09/24/25 17:00 09/24/25 16:23 09/24/25 17:00 09/24/25 16:23
Intake and Output
09/23/25 09/24/25 09/25/25
06:59 06:59 06:59
Intake Total 1908.5 / 2072.3 1237.3 / 1278.5 1238.2 / 1238.2
Output Total 2415 / 2475 1115 / 1315 1690 / 1690
Balance -506.5 / -402.7 122.3 / -36.5 -451.8 / -451.8
SaO2 [SIMV] 99
SaO2 93
Nasal Cannula flow liters per 2
minute
Physical Exam
General: Respiratory Distress (negative) and Chills (negative)
HEENT: Normocephalic and Anicteric
Cardiovascular: S1-S2, Peripheral Edema (negative) and Cool Extremities (Mainly in the feet bilaterally)
Respiratory: Wheeze (negative), Crackles (Bibasilar), Rhonchi (negative), Non-Labored Respirations, Stridor (negative) and Chest Tube (bilateral pleural chest tubes)
GI: Soft, Non Distended, Non Tender and Normal Bowel Sounds
Neurology: Awake, Alert and Tremors (negative)
Skin: Warm, Dry, Cyanosis and Jaundice
Labs/Micro/Reports
Lab Data
09/24/25 04:42
09/24/25 16:37
[2025-09-24 09:04] LABS: Glucose - Point of Care 195 mg/dl (70-99)
[2025-09-24 10:26] LABS: Glucose - Point of Care 238 mg/dl (70-99)
--- NOTE | 2025-09-24 10:58 | PTCARENOTE ---
Mediastinal chest tubes removed , Pt tolerated w/o issue. Diuresing well. Second unit of PRBC's transfusing. VSS. Medicated for sternal pain. Assessment otherwise unchanged from prior
[2025-09-24] MEDS: ROXICODONE 5 MG PO (11:07)
[2025-09-24 11:50] LABS: Glucose - Point of Care 247 mg/dl (70-99)
[2025-09-24] MEDS: NSS 500 IV (12:39)
[2025-09-24 13:13] LABS: Glucose - Point of Care 172 mg/dl (70-99)
[2025-09-24 14:14] LABS: Glucose - Point of Care 177 mg/dl (70-99)
[2025-09-24 15:05] LABS: Glucose - Point of Care 206 mg/dl (70-99)
[2025-09-24 16:23] LABS: Glucose - Point of Care 124 mg/dl (70-99)
--- NOTE | 2025-09-24 16:24 | PTCARENOTE ---
Ambulated in hallway with RN, gait steady, c/o slight dizziness, but nothing significant. VSS. Assessment otherwise unchanged from prior.
--- NOTE | 2025-09-24 16:26 | CM ---
Reviewed chart. Met with and Mrs. Mayorga to review discharge plans. He states prior to admission he resides with his spouse and three children in two story home without any steps to enter. He states he has to go up a full flight of steps to
bedroom/full bathroom. he states he has a powder room on the first floor. He states prior to admission he was independent with ambulation and adls. He states he does not have any DME in the home. He states his spouse will be home to assist in his
care if needed. We reviewed a home visit by the Transitional Care Nurse. He is agreeable to a home visit. Medical work-up in progress. The discharge plan is to return home with his spouse and children and a home visit by the Transitional Care
Nurse when medically stable.
[2025-09-24 17:07] LABS: Blood Urea Nitrogen 28 mg/dl (9-20); Calcium 7.7 mg/dl (8.4-10.2); Carbon Dioxide 30 mmol/L (22-30); Chloride 109 mmol/L (98-107); Estimated Creatinine Clearance 60 ml/min; Glucose 91 mg/dl (70-99); Magnesium 2.0 mg/dl (1.6-2.3); Potassium 3.7 mmol/L (3.5-5.1); Sodium 141 mmol/L (135-145); eGFR > 60.00
[2025-09-24] MEDS: KCL 40 MEQ PO (17:43)
[2025-09-24] MEDS: LIPITOR 40 MG PO (17:43)
[2025-09-24 17:46] LABS: Glucose - Point of Care 73 mg/dl (70-99)
--- NOTE | 2025-09-24 18:15 | PTCARENOTE ---
BMP obtained, potassium on low normal level, CT CADD DRAFTER notified. Replaced
[2025-09-24 19:09] LABS: Glucose - Point of Care 150 mg/dl (70-99)
--- NOTE | 2025-09-24 20:00 | PTCARENOTE ---
Resumed care of pt laying in bed AAOx3 with at bedside. Pt Afghan speaking but can understand and speak some broken Kyrgyz. HR in the 70's in NSR on the monitor. POX 91% on Ra, Lungs dec t/o, 2LO2 NC applied, POX now 97%. Midsternal
antibiotic dressing C/D/I. Sternal precautions maintained. Rt/Lft chest tubes in place draining serous Sangiunous drainage, dressing C/D/I. + bowel, round abd. Doppler B/L LE pulses present. Trace LE edema. Pale cool LE. Right site site open to air,
surg glue/ ecchymosis present. Right medial knee site open to air, surg glue/ecchymosis present. Nicotine patch to Rt UE. Right IJ cordis in place with NSS@KVO. Right wrist INT infusing Insulin gtt per protocol. Left hand int capped. Pt positioned
per comfort. Pt using urinal as needed. No issues to report at this time. Vital signs stable. remains at bedside. Will continue to monitor.
[2025-09-24 20:04] LABS: Glucose - Point of Care 143 mg/dl (70-99)
[2025-09-24] MEDS: REMOVE LIDOCAINE PATCH 1 PATCH REMOVE (20:21)
--- NOTE | 2025-09-24 21:00 | PTCARENOTE ---
Insulin gtt discontinued per MD order. No other changes in assessment noted at this time. Will continue to monitor.
[2025-09-24 21:06] LABS: Glucose - Point of Care 106 mg/dl (70-99)
[2025-09-25] VITALS (19 sets, daily range): BP systolic 109–137; BP diastolic 50–84; PULSE 82; O2SAT 93–94; BMI 31.7
--- NOTE | 2025-09-25 02:27 | W.PN.CT ---
Today's Communication / Plan
-
-pod #3
-no significant issues overnight.
-CT outputs: 2 pleur 120/210 in 12/24 hrs
-s/p 1 pRBC on 09/23 and 2 pRBCs on 09/24. Hg today 9.4
-diuresed with bid Lasix on 09/24. UO 1400/3000+
-follow Cr- 1.0 today (1.3-1.6 on 09/24, 1.1 on 09/23 and 0.9 preop)
-plans to restart Metformin and Farxiga 09/25
-encourage IS (500 so far), OOB
Assessment / Plan
-
-Severe 3v CAD- s/p CABG x 3 (BRIAN to LAD, GSV to OM (middle branch), GSV to RPDA); ELAA with AtriClip 35mm on 09/22/[address] Cox, pod #3
-Post-HIEU: LVEF 60% w/o RWMA, RV normal, No VHD, ELY confirmed excluded, mobile 1cm atheromatous plaque in proximal descending aorta unchanged from preop
-Plavix washout, last dose 09/17/25
-HTN
-HLD
-T2DM x 20 yrs (A1C 5.9)
-Class 1 obesity (BMI 31)
-COPD
-Current tobacco abuse (40 pk/yr)
-PAD with B/L SFA 90% stenosis, B/L anterior tibial occlusion
-Carotid artery stenosis, >70% JOHN
-Acute postop blood loss anemia - no transfusion
-Acute postop atelectasis/pulmonary insufficiency
-Acute postop respiratory and metabolic acidosis
-Acute postop hypovolemia with subsequent hypervolemia
-ISADORA
Discussed patient care with: Nursing and Care Team
Subjective
-
Date of Service: September 25, 2025
Objective Data
-
PT 16.5 Sec (11.4-14.6) H 09/22/25 16:51
INR 1.28 09/22/25 16:51
APTT 28.5 Sec (23.4-35.0) 09/22/25 16:51
Vital Signs
Vital Signs
Temp Pulse Resp BP Pulse Ox
98.1 F 68 20 117/47 97
09/24/25 22:02 09/24/25 23:00 09/24/25 22:02 09/24/25 23:00 09/24/25 23:00
CT Intake/Output/Weight
09/24/25 09/24/25 09/25/25
06:59 18:59 06:59
Intake Total 274.1 / 1278.5 1238.2 / 1241.4 3.2 / 1241.4
Output Total 430 / 1315 1690 / 2490 800 / 2490
Balance -155.9 / -36.5 -451.8 / -1248.6 -796.8 / -1248.6
SaO2: 97
Physical Exam
-
General: Awake and AOx3
Cardiovascular: Regular rate & rhythm, No Murmurs and No Rub
Respiratory: Decreased Breath Sounds
Sternum: Stable
Incision: Clean, Dry and Intact
Extremities: Edema +1 (at hands b/l. traced edema feet b/l)
Abdomen: soft, nontender, nondistended, + decreased bowel sounds
Data Reviewed
-
Lab Results: Results Reviewed
Medications: Active Meds Reviewed
Chest X-Ray: Report Reviewed and Image Reviewed
ECG: Report Reviewed and Image Reviewed
[2025-09-25 05:00] LABS: Blood Urea Nitrogen 24 mg/dl (9-20); Calcium 8.1 mg/dl (8.4-10.2); Carbon Dioxide 31 mmol/L (22-30); Chloride 108 mmol/L (98-107); Estimated Creatinine Clearance 78 ml/min; Glucose 90 mg/dl (70-99); Magnesium 2.0 mg/dl (1.6-2.3); Potassium 3.9 mmol/L (3.5-5.1); Sodium 140 mmol/L (135-145); eGFR > 60.00
[2025-09-25 05:12] LABS: Hematocrit 28.9 % (39.0-52.0); Hemoglobin 9.4 g/dL (13.0-18.0); Mean Corp Hgb Conc. 32.5 g/dL (33.0-37.0); Mean Corpuscular Volume 93.5 fL (80.0-94.0); Platelet Count 121 10^3/uL (130-400); Red Cell Dist. Width 15.2 % (11.5-14.5)
[2025-09-25] MEDS: TYLENOL 975 MG PO ×3 (06:06→23:01)
--- NOTE | 2025-09-25 06:35 | PTCARENOTE ---
PT slept well overnight. Pt standing at bedside to use urinal when needed. Pt OOB to chair this am without difficulty. CHG bath provided. 120ml Chest tube drainage overnight. Pt denies any complaints. Vital signs stable. Pt now on RA. Call del castillo in
reach. at bedside.
--- NOTE | 2025-09-25 08:24 | W.PN.INTV ---
Today's Communication / Plan
Recommendations
Postoperative management as per CT surgery
Removal of bilateral pleural chest tubes per CT surgery team
Pain control
Encourage incentive spirometer
Up OOB as tolerated
Goal BG 110�140; now off insulin gtt
Patient will be downgraded to CVICU�telemetry status later this morning. No additional recommendations at this time. Fashion Consultant Selling/Pulmonary service will now sign off. Please reconsult if there are any additional questions/concerns, or if patient's
respiratory status deteriorates.
Assessment
-
Assessment: 60-year-old male active tobacco smoker with a past medical history of DM type II, extensive PAD, hypertension, DJD, GERD, left femoral artery stenosis, lower extremity claudication and gait abnormality who presented from [facility] on
09/17/2025 for evaluation of CABG due to abnormal left heart catheterization showing multivessel CAD. Initially went to [facility] on 09/17/2025 for elective left heart catheterization due to high risk of CAD in the setting of tobacco use, uncontrolled
diabetes and lower extremity claudication with PAD. He underwent a gated Myoview stress test in January 2025 which was negative for scar or ischemia with a reported EF of 73%. Left heart cath performed at [facility] showed triple-vessel CAD. Patient
denies chest pain, shortness of breath or lower extremity edema. Patient was transferred here to for evaluation for CABG. CT surgery was consulted and also vascular surgery consulted given his history of PAD. MARJORIE studies were reviewed and
there is SFA occlusion on the right side with no left-sided severe profundus stenosis and distal SFA stenosis. No indication for urgent revascularization and follow-up in the vascular office was recommended. Full PFT on 09/21/2025 showed class I
COPD with no air trapping or hyperinflation, and preserved gas exchange capacity (DLCO: 93%). CT surgery recommended surgical revascularization which the patient consented to. On 09/22/2025, he underwent CABG x 3 with left atrial appendage
exclusion. There were no complications and was transferred postoperatively to the CVICU with business practices officer service consulted for additional management/recommendations.
Chronic conditions LOAN SPECIALIST: Hypertension, DM type II, PAD, COPD, DJD, knee osteoarthritis, GERD, left femoral artery stenosis, lower extremity claudication, gait abnormality
Impression:
#Multivessel CAD s/p CABG x 3+ left atrial appendage exclusion (POD #3)
#Acute anemia due to above
#Hypocalcemia
#Extensive PAD
#Active tobacco use
#COPD (Gold class I with a significant bronchodilator response without evidence of air trapping or hyperinflation and with preserved gas exchange capacity via PFTs on 09/21/2025)
#DM type II
#Hyperlipidemia
Plan:
Patient was extubated on 09/22 to 6 L/min via OxyMask; now on room air, breathing comfortably saturating 95-96%
Maintain SpO2 >90-94%, using supplemental O2 as needed
prn nebulized bronchodilators - not currently bronchospastic
Encourage incentive spirometer q1hr while awake
Pulmonary artery catheter parameters will be followed
Pressors/antihypertensive/inotropes/diuretics will be provided as needed
Maintain MAP>65
Replete electrolytes with K>4, Mg>2
Monitor chest tube output (bilateral pleural chest tubes)
Monitor hemoglobin
Monitor platelet count and coags
Transfuse blood products as needed to maintain Hb>7g/dL, plt>50k (given post-operative status)
CT surgery managing chest tubes
Monitor blood sugar to maintain euglycemia with goal BG 110-140
Insulin drip now off
Recommend ISS to maintain BG goal as above
Aspiration precautions
DVT prophylaxis
Early nutrition
Early mobilization
Patient has now been weaned off insulin drip. Will be downgraded to CVICU�telemetry status later this morning. No additional recommendations at this time. Fashion Consultant Selling/Pulmonary service will now sign off. Thank you for allowing us to be involved
in the care of this patient. Please reconsult if there are any additional questions/concerns, or if patient's respiratory status deteriorates.
Total time spent today was 59 minutes for this encounter. Time includes reviewing laboratory test/imaging results, reviewing pertinent medical records, obtaining and reviewing medical history, performing an appropriate exam, ordering medications,
tests and procedures. Time also includes documentation of this encounter, coordinating patient care and communicating with other healthcare professionals. Total time does not include separately billed tests performed on this date of service.
Subjective Dataa
Subjective Data
Date of Service:
Date of Service: September 25, 2025
Chief Complaint: Fashion Consultant Selling Follow Up
Subjective:
Patient was seen and evaluated this morning. Bilateral pleural chest tubes in place. Currently on room air, saturating 95% with heart rate 76 and BP 137/57.
Review of Systems
General: Other (Negative unless mentioned above)
Objective Data
Data Reviewed
Vital Signs / I&O / Oxygen:
Vital Signs
Temp Pulse Resp BP Pulse Ox
98.5 F 80 18 123/58 95
09/25/25 09:40 09/25/25 10:00 09/25/25 09:40 09/25/25 09:53 09/25/25 09:40
Intake and Output
09/24/25 09/25/25 09/26/25
06:59 06:59 06:59
Intake Total 1237.3 / 1278.5 1841.4 / 1841.4 40 / 40
Output Total 1115 / 1315 3210 / 3210 540 / 540
Balance 122.3 / -36.5 -1368.6 / -1368.6 -500 / -500
SaO2 [SIMV] 99
SaO2 95
Nasal Cannula flow liters per 2
minute
Physical Exam
General: Respiratory Distress (negative), Comfortable, Chills (negative) and Sweats (negative)
HEENT: Normocephalic and Anicteric
Cardiovascular: S1-S2, Murmur (DANE heard across anterior precordium), Peripheral Edema (negative) and Cool Extremities (Mainly in the feet bilaterally)
Respiratory: Wheeze (negative), Crackles (Bibasilar), Rhonchi (negative), Non-Labored Respirations, Stridor (negative) and Chest Tube (bilateral pleural chest tubes)
GI: Soft, Non Distended, Non Tender and Normal Bowel Sounds
Neurology: Awake, Alert, Oriented and Tremors (negative)
Skin: Warm, Dry, Cyanosis and Jaundice
Labs/Micro/Reports
Lab Data
09/25/25 04:07
09/25/25 04:07
[2025-09-25 09:45] LABS: Glucose - Point of Care 121 mg/dl (70-99)
[2025-09-25] MEDS: NOVOLOG FLEXPEN-LOW RESISTANCE SC ×2 (09:46→16:29)
[2025-09-25] MEDS: LASIX 40 MG IV ×2 (09:47→16:29)
[2025-09-25] MEDS: PLAVIX 75 MG PO (09:53)
[2025-09-25] MEDS: NEURONTIN 100 MG PO ×3 (09:53→23:01)
[2025-09-25] MEDS: PACERONE 200 MG PO ×3 (09:53→23:00)
[2025-09-25] MEDS: FARXIGA 5 MG PO (09:53)
[2025-09-25] MEDS: MAGNESIUM OXIDE 400 MG PO ×2 (09:54→20:18)
[2025-09-25] MEDS: SENOKOT 8.6 MG PO ×2 (09:54→20:18)
[2025-09-25] MEDS: PROTONIX 40 MG PO (09:54)
[2025-09-25] MEDS: GLUCOPHAGE 1000 MG PO ×2 (09:54→16:29)
[2025-09-25] MEDS: LOW STRENGTH ASPIRIN 81 MG PO (09:54)
[2025-09-25] MEDS: LEXAPRO 10 MG PO (09:55)
[2025-09-25] MEDS: ZETIA 10 MG PO (09:55)
[2025-09-25] MEDS: TRICOR 145 MG PO (09:55)
[2025-09-25] MEDS: NICODERM TRANSDERMAL 14 MG TRANSDERM (09:56)
[2025-09-25] MEDS: LIDOCAINE 4% PATCH 1 PATCH TOPICAL (09:56)
--- NOTE | 2025-09-25 10:00 | PTCARENOTE ---
Assumed care from nightshift RN. Pt laying in bed, bedside. Fully alert and oriented, south korean speaking, translation services utilized to communicate. Pt afebrile. NSR. Doppler used to assess bilateral lower extremity pulses, upper extremities
palpable. Room air, pulse ox 94%, lungs diminished in bases bilaterally, denies shortness of breath at rest. R/L pleural chest tubes to suction, 40cc serosanguineous drainage since last shift. + bowel sounds. RIJ cordis present with NSS KVO.
Ambulated with cardiac rehab around the entire unit, very well tolerated, some shortness of breath but recovered quickly. Pt using urinal independently, output noted in I&Os. 40mg IV lasix given.
[2025-09-25] MEDS: BACTROBAN 2% OINTMENT 1 APPLIC NASAL ×2 (10:02→20:18)
[2025-09-25 12:18] LABS: Glucose - Point of Care 258 mg/dl (70-99)
[2025-09-25] MEDS: NOVOLOG FLEXPEN-LOW RESISTANCE 3 UNITS SC (12:43)
[2025-09-25] MEDS: NSS 500 IV (12:44)
--- NOTE | 2025-09-25 14:49 | PTCARENOTE ---
Chest tubes (R/L pleural) discontinued. Procedure explained to patient via director recreation services. Remains on room air, O2 sat 97%. NSR 70s. Midodrine dose held per INTERNAL COMMUNICATIONS SPECIALIST, BP 130/59. Urine output >1L for shift so far, see I&O documentation. ONEIL ferrarais
intact with KVO. 3 units insulin given per protocol for glucose of 258. Ambulation and IS encouraged.
[2025-09-25 16:29] LABS: Glucose - Point of Care 148 mg/dl (70-99)
--- NOTE | 2025-09-25 16:36 | PTCARENOTE ---
Pt glucose improved down to 148 since insulin administration. Ambulated down to IVU window and back with minimal assist x1, well tolerated. Second dose of 40mg IV lasix given this shift, good urine output for the day, refer to I&O. BP 118/78. No
shortness of breath present since chest tubes discontinued, O2 sat 97% on room air.
[2025-09-25] MEDS: LIPITOR 40 MG PO (17:21)
--- NOTE | 2025-09-25 20:00 | PTCARENOTE ---
Assumed care of patient at 1900. Patient in bed at time of assessment with family member at bedside. Patient is primarily malaysian speaking use of language line during assessment. Patient is alert and oriented, follows commands appropriately, moves
all extremities. Lung sounds have fine crackles in the bases, saO2 93% on RA. Heart sounds are audible, patient is SR on the monitor, no observable edema, normal palpable radial pulses, weak but palpable dorsalis pedis pulses. Patient has active BS
in all four quadrants and is voiding in the bathroom. There is a sternal incision with aquacell dressing that has some old drainage, but otherwise intact, ABD dressing over CT wound CDI, R groin puncture approx with surg adhesive KIM, and RLE
incision approx with surg adhesive KIM. Patient has R IJ cordis receiving KVO, R hand 18G PIV, and R FA 18G PIV. Patient has no c/o pain. VSS. Call del castillo within reach.
[2025-09-25] MEDS: REMOVE LIDOCAINE PATCH 1 PATCH REMOVE (20:18)
[2025-09-25] MEDS: LOPRESSOR 12.5 MG PO (20:18)
[2025-09-25] MEDS: KCL 10 MEQ PO (20:18)
[2025-09-25 23:09] LABS: Glucose - Point of Care 177 mg/dl (70-99)
[2025-09-26 04:18] VITALS: BP 118/55
--- NOTE | 2025-09-26 05:08 | W.PN.CT ---
Today's Communication / Plan
-
-pod #4
-no issues overnight. Looks and feels better, ambulates without problems
-wt today is close to preop- put Lasix and K on hold
-BP improved, denies dizziness
-labs are pending
-encourage IS (upto 1500 so far), OOB, ambulate
-possible d/c home
Assessment / Plan
-
-Severe 3v CAD- s/p CABG x 3 (BRIAN to LAD, GSV to OM (middle branch), GSV to RPDA); ELAA with AtriClip 35mm on 09/22/[address] Cox, pod #4
-Post-HIEU: LVEF 60% w/o RWMA, RV normal, No VHD, ELY confirmed excluded, mobile 1cm atheromatous plaque in proximal descending aorta unchanged from preop
-Plavix washout, last dose 09/17/25
-HTN
-HLD
-T2DM x 20 yrs (A1C 5.9)
-Class 1 obesity (BMI 31)
-COPD
-Current tobacco abuse (40 pk/yr)
-PAD with B/L SFA 90% stenosis, B/L anterior tibial occlusion
-Carotid artery stenosis, >70% JOHN
-Acute postop blood loss anemia - no transfusion
-Acute postop atelectasis/pulmonary insufficiency
-Acute postop respiratory and metabolic acidosis
-Acute postop hypovolemia with subsequent hypervolemia
-ISADORA
Discussed patient care with: Nursing and Care Team
Subjective
-
Date of Service: September 26, 2025
Objective Data
-
PT 16.5 Sec (11.4-14.6) H 09/22/25 16:51
INR 1.28 09/22/25 16:51
APTT 28.5 Sec (23.4-35.0) 09/22/25 16:51
Vital Signs
Vital Signs
Temp Pulse Resp BP Pulse Ox
98.6 F 68 20 118/55 93
09/26/25 04:30 09/26/25 04:40 09/26/25 04:30 09/26/25 04:18 09/26/25 04:30
CT Intake/Output/Weight
09/25/25 09/25/25 09/26/25
06:59 18:59 06:59
Intake Total 603.2 / 1841.4 360 / 440 80 / 440
Output Total 1520 / 3210 1790 / 3040 1250 / 3040
Balance -916.8 / -1368.6 -1430 / -2600 -1170 / -2600
SaO2: 93
Physical Exam
-
General: Awake and AOx3
Cardiovascular: Regular rate & rhythm, No Murmurs and No Rub
Respiratory: Decreased Breath Sounds
Sternum: Stable
Incision: Clean, Dry and Intact
Extremities: No Edema
Abdomen: soft, nondistended, nontender, + bowel sounds
Data Reviewed
-
Lab Results: Results Reviewed
Medications: Active Meds Reviewed
Chest X-Ray: Report Reviewed and Image Reviewed
ECG: Report Reviewed and Image Reviewed
[2025-09-26 05:50] LABS: Blood Urea Nitrogen 22 mg/dl (9-20); Calcium 8.3 mg/dl (8.4-10.2); Chloride 105 mmol/L (98-107); Estimated Creatinine Clearance 64 ml/min; Glucose 115 mg/dl (70-99); Hematocrit 28.3 % (39.0-52.0); Hemoglobin 9.3 g/dL (13.0-18.0); Magnesium 2.1 mg/dl (1.6-2.3); Mean Corp Hgb Conc. 32.9 g/dL (33.0-37.0); Mean Corpuscular Volume 94.6 fL (80.0-94.0); Platelet Count 170 10^3/uL (130-400); Potassium 4.1 mmol/L (3.5-5.1); Red Cell Dist. Width 14.6 % (11.5-14.5); Sodium 141 mmol/L (135-145); eGFR > 60.00
[2025-09-26 05:59] LABS: Carbon Dioxide 31 mmol/L (22-30)
[2025-09-26 06:00] VITALS: BMI 30.9
[2025-09-26] MEDS: TYLENOL 975 MG PO (06:47)
[2025-09-26 08:00] VITALS: BP 119/55
[2025-09-26 08:28] LABS: Glucose - Point of Care 233 mg/dl (70-99)
[2025-09-26 08:31] VITALS: BP 119/55
[2025-09-26] MEDS: NOVOLOG FLEXPEN-LOW RESISTANCE 2 UNITS SC (08:35)
[2025-09-26] MEDS: PLAVIX 75 MG PO (08:36)
[2025-09-26] MEDS: FARXIGA 5 MG PO (08:36)
[2025-09-26] MEDS: MAGNESIUM OXIDE 400 MG PO (08:36)
[2025-09-26] MEDS: GLUCOPHAGE 1000 MG PO (08:36)
[2025-09-26] MEDS: PROTONIX 40 MG PO (08:36)
[2025-09-26] MEDS: TRICOR 145 MG PO (08:36)
[2025-09-26] MEDS: NEURONTIN 100 MG PO (08:36)
[2025-09-26] MEDS: SENOKOT 8.6 MG PO (08:36)
[2025-09-26] MEDS: PACERONE 200 MG PO (08:36)
[2025-09-26] MEDS: LOW STRENGTH ASPIRIN 81 MG PO (08:37)
[2025-09-26] MEDS: LIDOCAINE 4% PATCH 1 PATCH TOPICAL (08:37)
[2025-09-26] MEDS: LOPRESSOR 12.5 MG PO (08:37)
[2025-09-26] MEDS: ZETIA 10 MG PO (08:37)
[2025-09-26] MEDS: NICODERM TRANSDERMAL 14 MG TRANSDERM (08:37)
[2025-09-26] MEDS: LEXAPRO 10 MG PO (08:37)
[2025-09-26] MEDS: BACTROBAN 2% OINTMENT 1 APPLIC NASAL (08:42)
[2025-09-26] MEDS: NSS IV (08:59)
--- NOTE | 2025-09-26 10:11 | PTCARENOTE ---
Assumed care of patient from nightshift RN. Patient is primarily Mosotho-speaking, use of language line during assessment. Patient fully alert and oriented, follows commands appropriately, moves all extremities. SaO2 96% on RA. Heart sounds are
audible, patient is NSR on the monitor, no observable edema, normal palpable radial pulses, weak but palpable dorsalis pedis pulses. Patient has active BS in all four quadrants and is voiding in the bathroom. There is a sternal incision with
aquacell dressing that has some old drainage, but otherwise intact, ABD dressing over CT wound CDI, R groin puncture approx with surg adhesive KIM, and RLE incision approx with surg adhesive CERTIFIED ART THERAPIST. Patient RIJ cordis discontinued, R hand 18G PIV, and
R FA 18G PIV. VSS. Call del castillo within reach. I.S and ambulation strongly encouraged.
--- NOTE | 2025-09-26 10:46 | W.DCSUMMARY ---
Discharge Summary
Discharge Data
Date of Admission: 09/17/25
Date of Discharge: 09/26/25
-
Pending Results: No
Hospital Course
Primary care physician:
Unknown
Outpatient outpatient phlebotomist:
Dr. Leslie
Inpatient consultants:
CBC
Procedures:
1. s/p CABG x 3 (BRIAN to LAD, GSV to OM (middle branch), GSV to RPDA); ELAA with AtriClip 35mm on 09/22/[address] Cox
Primary Diagnosis:
-Severe 3v CAD
-Plavix washout, last dose 09/17/25
-HTN
-HLD
-T2DM x 20 yrs (A1C 5.9)
-Class 1 obesity (BMI 31)
-COPD
-Current tobacco abuse (40 pk/yr)
-PAD with B/L SFA 90% stenosis, B/L anterior tibial occlusion
-Carotid artery stenosis, >70% JOHN
Secondary Diagnoses:
-Severe 3v CAD- s/p CABGx3
-Acute postop blood loss anemia - no transfusion
-Acute postop atelectasis/pulmonary insufficiency
-Acute postop respiratory and metabolic acidosis
-Acute postop hypovolemia with subsequent hypervolemia
-ISADORA
-Plavix washout, last dose 09/17/25
-HTN
-HLD
-T2DM x 20 yrs (A1C 5.9)
-Class 1 obesity (BMI 31)
-COPD
-Current tobacco abuse (40 pk/yr)
-PAD with B/L SFA 90% stenosis, B/L anterior tibial occlusion
-Carotid artery stenosis, >70% JOHN
HPI: 60-year-old male active tobacco smoker with a past medical history of DM type II, extensive PAD, hypertension, DJD, GERD, left femoral artery stenosis, lower extremity claudication and gait abnormality who presented from [facility] on 09/17/2025 for
evaluation of CABG due to abnormal left heart catheterization showing multivessel CAD. Initially went to [facility] on 09/17/2025 for elective left heart catheterization due to high risk of CAD in the setting of tobacco use, uncontrolled diabetes and lower
extremity claudication with PAD. He underwent a gated Myoview stress test in January 2025 which was negative for scar or ischemia with a reported EF of 73%. Left heart cath performed at [facility] showed triple-vessel CAD. Patient denies chest pain,
shortness of breath or lower extremity edema. Patient was transferred here to for evaluation for CABG.
Hospital course: He was admitted on 09/17 and underwent workup for cardiac surgery while allowing his Plavix to washout. He was taken to the OR on 09/22 and underwent CABG x3. He tolerated the procedure well and was tranferred to the CVICU in
stable condition. He was extubated later that evening. He had an uneventful postoperative course and his lines and drains were removed in the routine fashion. CXR post chest tube removal revealed no pneumothorax or significant pleural effusions.
He maintained sinus rhythm throughout his stay. It was felt that he could safely be discharged to home on POD#4. He was given explicit instructions on diet, wound care, and physical activity. He will follow up with CT surgery and Cardiology as
scheduled and his PCP as needed.
Discharge Plan
-
Patient Disposition: Home (Routine Discharge)
Discharge Diagnosis/Procedures: CABG x 3, let atrial appendage clip (09/22/25)
Diet: Low Cholesterol and Low Sodium
Activity: No strenuous activity
Driving Restrictions: Not until seen by your Dr
Bathing Restrictions: OK to Shower
Other Services: Cardiac Rehab
Specialty Instructions: Weigh Daily- Call MD for wt gain/loss 3 lbs overnight/5 lbs in 1 week
Activity Restrictions/Additional Instructions:
Please call [facility] to get scheduled. P: [phone]
Referrals:
CT Transitional Care Nurse [Outside] - in one to two days
Referral Note:
The Cardiothoracic Transitional Care Nurse will call you to set up a visit in 1-2 days.
Chalo Gardner MD [Active, Vascular Surgery]
Referral Note: Follow-up within 2-4 weeks for consultation on Peripheral Artery Disease.
Dave Leslie MD [Active, Cardiology] - 11/03/25 1:20 pm
Giorgio Cox MD [Active, Cardiac Surgery] - 10/19/25 1:30 pm
UNKNOWN,NO INTERVIEW [Family Provider]
Prescriptions:
New
atorvastatin 40 mg Tablet
40 mg PO QPM Qty: 30 2RF
metoprolol tartrate 25 mg Tablet
12.5 mg PO Q12 Qty: 30 2RF
aspirin 81 mg Tablet,Chewable
81 mg PO DAILY Qty: 0 0RF
nicotine 14 mg/24 hr Patch 24 Hour
14 mg transdermal DAILY 14 Days Qty: 14 0RF
clopidogrel 75 mg Tablet
75 mg PO DAILY Qty: 30 2RF
acetaminophen 325 mg Tablet
650 mg PO Q6HPRN PRN (Reason: fever or pain) Qty: 0 0RF
Continued
metformin 1,000 mg Tablet
1,000 mg BID
gabapentin 300 mg Capsule
300 mg QDAY
tadalafil 20 mg Tablet
20 mg PO DAILY PRN (Reason: other)
fenofibrate 150 mg Capsule
150 mg PO DAILY
diclofenac sodium 1 % Gel
4 g TOPICAL QID PRN (Reason: other)
icosapent ethyl [Vascepa] 1 gram Capsule
2 g PO BID
dapagliflozin propanediol [Farxiga] 5 mg Tablet
5 mg PO DAILY
aspirin 81 mg
81 mg QDAY
Discontinued
cilostazol 100 mg Tablet
100 mg PO BID
carvedilol 25 mg Tablet
25 mg PO BID
mupirocin 2 % Ointment
1 applic TOPICAL BID
levofloxacin 500 mg Tablet
500 mg PO DAILY
chlorhexidine gluconate 0.12 % Mouthwash
15 ml QDAY
Discharge Orders:
Discharge Patient (As Directed); Ordered 09/26/25
Ordered By: Kam Vaughan
Care Plan Goals
Care Plan Goals:
Problem: Readiness for enhanced knowledge related to diagnosis and treatment plan
Goal: Understand your diagnosis and treatment plan needs, including medications if applicable.
Instructions: Know your diagnosis, underlying causes and treatment plan options, including medications if applicable. Consult with your health care team to learn about your diagnosis and treatment plan, including medications if applicable.
Discharge Date and Time
Discharge Date/Time: 09/26/25 11:45
Print Language: Iraqi
--- NOTE | 2025-09-26 11:47 | PTCARENOTE ---
Patient discharge instructions read with assistance of supervising deputy services, patient verbalized clear understanding. Pt family member also bedside who spoke Vietnamese and double verified understanding of discharge instructions. All peripheral IVs
discontinued. IS encouraged. Brought down to family vehicle in wheelchair by RN. Discharged 1141
--- NOTE | 2025-09-26 11:52 | PTCARENOTE ---
Patient also refused a shower on the unit. Stated they would shower at home.
== END 2025-09-26 11:45 | disposition home or self-care (01) | DRG 235 ==
LOC: CVICU 20:00
PROVIDERS: Anesthesiology; Clinical Nurse Specialist Acute Care; Nurse Practitioner; Physician Assistant Medical; ADMITTING PHYSICIAN Thoracic Surgery (Cardiothoracic Vascular Surgery); ATTENDING PHYSICIAN Thoracic Surgery (Cardiothoracic Vascular Surgery); CONSULT PHYSICIAN Internal Medicine Cardiovascular Disease; CONSULT PHYSICIAN Internal Medicine Critical Care Medicine; OTHER PHYSICIAN Surgery Vascular Surgery
PROC: 5A1221Z Performance of Cardiac Output, Continuous (ICD-10-PCS; 2025-09-22)
PROC: 02L70CK Occlusion of Left Atrial Appendage with Extraluminal Device, Open Approach (ICD-10-PCS; 2025-09-22)
PROC: 5A09357 Assistance with Respiratory Ventilation, Less than 24 Consecutive Hours, Continuous Positive Airway Pressure (ICD-10-PCS; 2025-09-22)
PROC: 021109W Bypass Coronary Artery, Two Arteries from Aorta with Autologous Venous Tissue, Open Approach (ICD-10-PCS; 2025-09-22)
PROC: 02100ZC Bypass Coronary Artery, One Artery from Thoracic Artery, Open Approach (ICD-10-PCS; 2025-09-22)
PROC: 30233R1 Transfusion of Nonautologous Platelets into Peripheral Vein, Percutaneous Approach (ICD-10-PCS; 2025-09-22)
PROC: 06BP4ZZ Excision of Right Saphenous Vein, Percutaneous Endoscopic Approach (ICD-10-PCS; 2025-09-22)
PROC: B24BZZ4 Ultrasonography of Heart with Aorta, Transesophageal (ICD-10-PCS; 2025-09-22)
PROC: 30233N1 Transfusion of Nonautologous Red Blood Cells into Peripheral Vein, Percutaneous Approach (ICD-10-PCS; 2025-09-23)
DX: I25.119 Atherosclerotic heart disease of native coronary artery with unspecified angina pectoris (principal); J95.1 Acute pulmonary insufficiency following thoracic surgery; D62 Acute posthemorrhagic anemia; E87.4 Mixed disorder of acid-base balance; J98.11 Atelectasis; N17.9 Acute kidney failure, unspecified; E83.51 Hypocalcemia; E86.1 Hypovolemia; E87.70 Fluid overload, unspecified; I10 Essential (primary) hypertension; E11.65 Type 2 diabetes mellitus with hyperglycemia; Z68.31 Body mass index [BMI] 31.0-31.9, adult; E66.811 Obesity, class 1; J44.9 Chronic obstructive pulmonary disease, unspecified; F17.210 Nicotine dependence, cigarettes, uncomplicated; E11.51 Type 2 diabetes mellitus with diabetic peripheral angiopathy without gangrene; I65.21 Occlusion and stenosis of right carotid artery; I70.213 Atherosclerosis of native arteries of extremities with intermittent claudication, bilateral legs; E78.00 Pure hypercholesterolemia, unspecified; N40.0 Benign prostatic hyperplasia without lower urinary tract symptoms; Y83.2 Surgical operation with anastomosis, bypass or graft as the cause of abnormal reaction of the patient, or of later complication, without mention of misadventure at the time of the procedure; Z79.02 Long term (current) use of antithrombotics/antiplatelets; Z79.84 Long term (current) use of oral hypoglycemic drugs; Z79.82 Long term (current) use of aspirin
CPT/HCPCS: 71045; 71046; 71250; 80048; 80053; 80061; 81003; 81015; 82330; 82565; 82805; 82810; 82947; 82962; 83036; 83735; 83880; 84100; 84132; 84302; 84520; 85014; 85018; 85025; 85027; 85049; 85384; 85610; 85730; 86850; 86900; 86901; 86920; 93005; 93306; 93312; 93320; 93325; 93880; 93922; 93923; 93925; 93930; 93970; 94002; 94060; 94660; 94727; 94729; C1713; P9016; P9073